=== PATIENT | male | born 1950 | race Caucasian/White ===

== ENCOUNTER 2024-12-21 13:15 | Outpatient (REF) | payer MEDICARE, BC, SELFPAY ==
[2024-12-21 14:58] LABS: Anion Gap 14 (12-20); Blood Urea Nitrogen 13 mg/dL (9-16); Carbon Dioxide 25 mmol/L (22-29); Chloride 106 mmol/L (96-108); Estimated Glomerular Filt Rate > 60; Glucose Fasting 124 mg/dL (60-99); Potassium 3.7 mmol/L (3.3-5.1); Sodium 141 mmol/L (135-145)
[2024-12-21 15:34] LABS: Vitamin B12 801 pg/mL (200-900)
--- OUTSIDE RECORDS SUMMARY | 2024-12-21 17:18 | XMS_ITS | Encounter Summary ---
Author Organization [facility] Address [address] [place] [address] Care Team Providers Care Nitrocellulose Operator Name Role Phone Rashaun Toney MD Primary Care Provider [phone] Reason for Visit * Reason Comments Peripheral Neuropathy Eval for muscle bx * Consultation (Routine) - Closed Specialty Diagnoses / Procedures Referred By Contac t Referred To Contact Neurosurgery [place] [address] [place] [phone] Ivy Wharton MD [address] [place] [phone] Referral ID Status Reason Start Date Expiration Date V isits Requested Visits Authorized [id number] Closed Specialty Services Required 11/13/2024 11/13/2025 1 1 Encounter Details Date Type Department Care Team (Late st Contact Info) Description 12/05/2024 11:30 AM EST Office Visit Neurosurgery [address] [phone] Ivy Wharton MD [address] [place] [phone] Neuropathy of both feet (Primary Dx); Neuropathy Social History Tobacco Use Types Packs/Day Years Used Date Smoking Tobacco: Former Cigarettes 0.5 42 1 - 09/06/2012 Smokeless Tobacco: Never Tobacco Cessation:Counseling Given: Not Answered Alcohol Use Standard Drinks/Week Comments Yes 12 (1 standard drink = 0.6 oz pu re alcohol) Sex and Gender Information Value Date Recorded Sex Assigned at Male 10/27/2024 2:55 PM EST Gender Identity Male 10/27/2024 2:55 PM EST Sexual Orientation Straight 10/27/2024 2: 55 PM EST Job Start Date Occupation Industry Not on file Not on file Not on file documented as of this encounter Last Filed Vital Signs Vital Sign Reading Time Taken Comments Blood Pressure - - Pulse - - Temperature - - Respiratory Rate - - Oxygen Saturation - - Inhaled Oxygen Concentration - - Weight 82.6 kg (182 lb) 12/05/2024 11:11 AM EST Height 172.7 cm (5' 8 ) 12/05/2024 11:11 AM EST Body Mass Index 27.67 12/05/2024 11:11 AM EST documented in this encounter Progress Notes * Ivy Wharton MD - 12/05/2024 12:20 PM ESTAssociated Problem(s): Neuropathy of both feet I reviewed the EMG findings in detail with Mr. Willis which showed peripheral neuropathy and mild distal chronic changes. He does not have any worsening back pain and his symptoms do not seem to radiate from his back. It is worse at night and getting worse every month and affecting him every day. The request was for a right calf muscle biopsy but he has not yet had his appointment with neurology. He is scheduled to see Dr. Stuart at the end of November. I would like to wait until after that appointment to confirm that the biopsies needed and if there is a specific muscle group they would liketo target. The patient is concerned that this whole process has taken quite some time so we will reserve a surgical date for him in mid December pending his neurology appointment. We discussed the det ails of the procedure but can review them again at our next conversation. * Ivy Wharton MD - 12/05/2024 11:30 AM EST NEW PATIENT CONSULTATION Date of Visit: 12/05/2024 Referring Physician: Keaton Silva MD Primary Care Physician: Rashaun Toney MD RE: Rajeev Willis : 1950 Chief Complaint Patient presents with Peripheral Neuropathy Eval for muscle bx Dear Dr Rashaun Toney MD Thank you for referring Mr. Willis to our office today. Rajeev Willis is a 74 y.o. male who presents to our office with a 1 year history of what began as twitching in his legs then progressed to spasms. There was no inciting event and was not painful per se at the symptom onset. Unfortunately, this has progressed to severe cramping in his calves every night for the last few months whether he issitting back in his recliner or fully laying down. It happens less often during the day but these episodes can last 5 to 20 minutes and are becoming unbearable, rating the pain level 10/10. 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 This seems unrelatedto that. He was evaluated at the arthritis treatment center where standard laboratory tests were within normal but an EMG showed abnormal findings. The request is for a right calf biopsy for myalgia versus myositis and he was also referred to Dr. Stuart of neurology. Past Medical History: Diagnosis Date Abdominal pain DX:Abdominal pain Abnormal large bowel motility DX:Abnormal large bowel motility Constipation DX:Constipation COPD (chronic obstructive pulmonary disease) ([facility]) DX:COPD (chronic obstructive pulmonary disease) ([facility]) Hyperlipidemia Hypertension Tubular adenoma of colon DX:Tubular adenoma of colon Past Surgical History: Procedure Laterality Date ANKLE SURGERY Right COLONOSCOPY 03/29/2012 PROCEDURE: HISTORICAL COLONOSCOPY; COMMENT: 12 mm sessile polyp at 40 cm: tubular adenoma. COLONOSCOPY 08/09/2000 PROCEDURE: HISTORICAL COLONOSCOPY; COMMENT: 5 mm tubular adenoma at 25 cm COLONOSCOPY 03/18/2006 PROCEDURE: HISTORICAL COLONOSCOPY; COMMENT: no polyps COLONOSCOPY 05/27/2017 PROCEDURE: HISTORICAL COLONOSCOPY; COMMENT: 5 mm rectal polyp: hyperplastic. FOOT SURGERY Left SHOULDER SURGERY Right No Known Allergies Current Outpatient Medications Medication Sig Dispense Refill atorvastatin (LIPITOR) 20 mg tablet TAKE 1 TABLET BY MOUTH EVERY DAY 90 tablet 0 Combivent Respimat 20-100 mcg/actuation inhaler INHALE 1 PUFF INTO THE LUNGS FOUR TIMES DAILY NEEDED FOR WHEEZING lisinopriL (PRINIVIL,ZESTRIL) 30 mg tablet Take 1 tablet (30 mg total) by mouth 1 (one) time each day. tamsulosin (FLOMAX) 0.4 mg 24 hr capsule Take 1 capsule (0.4 mg total) by mouth. Trelegy Ellipta 200-62.5-25 mcg inhaler Inhale. umeclidinium-vilanteroL (ANORO ELLIPTA) 62.5-25 mcg/actuation inhaler Inhale by mouth. cyclobenzaprine (FLEXERIL) 5 mg tablet Take 1 tablet (5 mg total) by mouth. (Patient not taking: Reported on 12/05/2024) mometasone (ELOCON) 0.1 % cream APPLY TO AFFECTED AREA DAILY DIRECTED. 45 g 1 No current facility-administered medications for this visit. Social History Tobacco Use Smoking status: Former Current packs/day: 0.00 Average packs/day: 0.5 packs/day for 42.0 years (21.0 ttl pk-yrs) Types: Cigarettes Start date: 1970 Quit date: 09/06/2012 Years since quittin.2 Smokeless tobacco: Never Substance Use Topics Alcohol use: Yes Alcohol/week: 12.0 standard drinks of alcohol Types: 12 Cans of beer per week Drug use: No Social History Social History Narrative Not on file No family history on file. Review of Systems Notable for weight change, mild fatigue, depression, tinnitus and shortness of breath due to emphysema Physical Exam Awake, alert and oriented with normal speech and good comprehension. Strength is full throughout, he is able to stand on his toes and walk on his heels, gait is steady. Vitals: 12/05/24 1111 Weight: 82.6 kg (182 lb) Height: 1.727 m (68 ) Imaging Bilateral lower extremity EMG/NCS performed by Dr. Sewell on 10/30/2024 showed diffuse to mild tohave sensorimotor peripheral neuropathy of lower extremities. EMG of the left L4-S1 innervated muscles consistent with mild distal chronic neuropathic changes Assessment/Plan Problem List Items Addressed This Visit Neuropathy of both feet - Primary I reviewed the EMG findings in detail with Mr. Willis which showed peripheral neuropathy and mild distal chronic changes. He does not have any worsening back pain and his symptoms do not seem to radiate from his back. It is worse at night and getting worse every month and affecting him every day. The request was for a right calf muscle biopsy but he has not yet had his appointment with neurology. He is scheduled to see Dr. Stuart at the end of November. I would like to wait until after that appointment to confirm that the biopsies needed and if there is a specific muscle group they would liketo target. The patient is concerned that this whole process has taken quite some time so we will reserve a surgical date for him in mid December pending his neurology appointment. We discussed the det ails of the procedure but can review them again at our next conversation. Other Visit Diagnoses Neuropathy Thank you for allowing us to care for your patient. Ivy Wharton MD on 12/05/2024 at 12:21 PM EST CC: Keaton Silva MD Zhongmo Yu, MD [facility] Neurosurgical [place] documented in this encounter Plan of Treatment Upcoming Encounters Date Type Department Care Team (Late st Contact Info) Description 02/13/2025 8:15 AM EDT Office Visit Adult Medicine [facility] [address] [place] [phone] Ishmael Reaves PA [address] [place] [address] 04/02/2025 9:30 AM EDT [facility] [address] [facility] [address] [place] [phone] Ayaan Benjamin MD 175 [facility] [address] [place] [address] documented as of this encounter Visit Diagnoses Diagnosis Neuropathy of both feet- Primary Neuropathy Mononeuritis of unspecified site documented in this encounter Historical Medications * This list may reflect changes made after this encounter. Medication Sig Dispensed Refills Start Date End Date umeclidinium-vilanteroL (ANORO ELLIPTA) 62.5-25 mcg/actuation inhaler Inhale by mouth. added in this encounter Orders Outpatient Referral Count Last Ordered Date Fir st Ordered Date AMB REFERRAL TO NEUROSURGERY 1 12/05/2024 documented in this encounter Care Teams Nitrocellulose Operator Relationship Specialty Start Date End Date Rashaun Toney MD [address] [place] [phone] PCP - General 09/13/1998 documented as of this encounter
--- OUTSIDE RECORDS SUMMARY | 2024-12-21 17:18 | XMS_ITS | Encounter Summary ---
Author Organization [facility] Address [address] [place] [address] Care Team Providers Care Nurse Infection Control Name Role Phone Garett Toney MD Primary Care Provider [phone] Reason for Visit * Reason Comments Follow-up Three month follow u p- Patient feeling stressed out over leg pain in both legs. Leg pain at night Encounter Details Date Type Department Care Team (Late st Contact Info) Description 12/06/2024 3:30 PM EST Office Visit Adult Medicine [address] [phone] Garett Toney MD [address] [place] [phone] Pain in both lower extremities (Primary Dx); Type 2 diabetes mellitus with other specified complication, without long-term current use of insulin ([facility]); Pure hypercholesterolemia ; Neuropathy of both feet; Arthralgia, unspecified joint; Stress Social History Tobacco Use Types Packs/Day Years [...] Sign Reading Time Taken Comments Blood Pressure 140/82 12/06/2024 3:40 PM EST Pulse 94 12/06/2024 3:40 PM EST Temperature 36 ??C (96.8 ??F) 12/06/2024 3:40 PM EST Respiratory Rate 22 12/06/2024 3:40 PM EST Oxygen Saturation - - Inhaled Oxygen Concentration - - Weight 82.1 kg (181 lb) 12/06/2024 3:40 PM EST Height 172.7 cm (5' 8 ) 12/06/2024 3:40 PM EST Body Mass Index 27.52 12/06/2024 3:40 PM EST documented in this encounter Ordered Prescriptions Prescription Sig Dispensed Refills Start Date End Da te sertraline (ZOLOFT) 25 mg tablet Take 1 tablet (25 mg total) by mouth 1 (one) time each day. 30 tablet 3 12/06/2024 documented in this encounter Progress Notes * Garett Toney MD - 12/06/2024 3:30 PM ESTAddended by: GARETT TONEY on: 12/10/2024 05:28 PM Modules accepted: Level of Service * Garett Toney MD - 12/06/2024 3:30 PM EST see separate documentation * Garett Toney MD - 12/06/2024 3:30 PM EST CHIEF COMPLAINT: Follow-up (Three month follow up- Patient feeling stressed out over leg pain in both legs. Leg pain at night ) IDENTIFIER: Rajeev Willis is a 74 y.o. old male. HPI: Pt presents for evaluation of multiple medical problems. Patient complain about significant bilateral lower extremity pain. The appears to have 2 different components, pain in the calf region with frequent muscle spasm, also pain numbness tingling sensation from the ankles down. All symptoms appears to be worse in the evening hours affecting patient's sleeping. Patient saw multiple specialist for these ongoing complaints, including rheumatology, neurosurgeon,neurology. Patient described what appears to be EMG study and told me that neurosurgeon will make final decision from neurology for the next step. There is no specific joint swelling or redness. Patient's breathing is at baseline, no increased cough, no constitutional symptoms. She is taking his medication as instructed Patient continued his drinking habit although he is cutting way down, average only few beers per day. ROS: GENERAL: Negative for malaise, significant weight loss and fever RESPIRATORY: No cough, wheezing or shortness of breath CARDIOVASCULAR: Negative for chest pain, leg swelling and palpitations GI: Negative for abdominal discomfort, changes in bowel habits, blood in stool or black stools ENDOCRINE: Negative for cold or heat intolerance, polyuria, polydipsia and goiter NEURO: Negative for syncope, seizures, paralysis, and involuntary movements PAST MEDICAL HISTORY: Patient Active Problem List Diagnosis Date Noted DM (diabetes mellitus), type 2 ([facility] 08/24/2024 Type 2 diabetes mellitus without complication, without long-term current use of insulin ([facility]) 05/11/2019 Hypoxia 11/30/2018 Requires supplemental oxygen 11/30/2018 Stage 2 moderate COPD by GOLD classification ([facility]) 05/26/2018 Centrilobular emphysema ([facility]) 05/26/2018 Thoracic ascending aortic aneurysm ([facility]) 10/21/2017 Pulmonary nodules 10/20/2017 Neuropathy of both feet 11/03/2016 Essential hypertension 08/04/2016 Osteoarthritis of lumbar spine 08/04/2016 Family history of malignant melanoma 08/04/2016 Ex-smoker 07/14/2016 Pure hypercholesterolemia 10/13/2005 SOCIAL HISTORY: Social History Tobacco Use Smoking status: Former Current packs/day: 0.00 Average packs/day: 0.5 packs/day for 42.0 years (21.0 ttl pk-yrs) Types: Cigarettes Start date: 1970 Quit date: 09/06/2012 Years since quittin.2 Smokeless tobacco: Never Substance Use Topics Alcohol use: Yes Alcohol/week: 12.0 standard drinks of alcohol Types: 12 Cans of beer per week FAMILY HISTORY: Family Status Relation Name Status Mother melanoma 73 Father thyroid cancer Sister Alive Sister Alive No partnership data on file No family history on file. ACTIVE MEDICATIONS: Outpatient Medications Marked as Taking for the 12/06/24 encounter (Office Visit) with Garett Toney MD Medication Sig Dispense Refill atorvastatin (LIPITOR) 20 mg tablet TAKE 1 TABLET BY MOUTH EVERY DAY 90 tablet 0 Combivent Respimat 20-100 mcg/actuation inhaler INHALE 1 PUFF INTO THE LUNGS FOUR TIMES DAILY NEEDED FOR WHEEZING lisinopriL (PRINIVIL,ZESTRIL) 30 mg tablet Take 1 tablet (30 mg total) by mouth 1 (one) time each day. mometasone (ELOCON) 0.1 % cream APPLY TO AFFECTED AREA DAILY DIRECTED. 45 g 1 tamsulosin (FLOMAX) 0.4 mg 24 hr capsule Take 1 capsule (0.4 mg total) by mouth. Trelegy Ellipta 200-62.5-25 mcg inhaler Inhale. umeclidinium-vilanteroL (ANORO ELLIPTA) 62.5-25 mcg/actuation inhaler Inhale by mouth. ALLERGIES: Patient has no known allergies. PHYSICAL EXAM: Blood pressure (!) 140/82, pulse 94, temperature 36 ??C (96.8 ??F), temperature source Temporal, resp. rate 22, height 1.727 m (68 ), weight 82.1 kg (181 lb). Body mass index is 27.52 kg/m??. BMI is greater than 25.0 (above the normal range) - see Plan APPEARANCE: Alert and in no acute distress MOUTH/THROAT: no erythema, lesions, or exudates HEART: Regular normal S1-S2 LUNG: clear to auscultation bilaterally ABDOMEN: Bowel sounds normoactive, no bruits and soft, non-tender, without organomegaly or palpablemasses BACK: no pain to palpation and good flexion and extension EXTREMITIES: No edema and overall warm LABS: Lab Results Component Value Date HGBA1C 6.4 06/20/2024 Lab Results Component Value Date MICROALBCREA abstracted 06/20/2024 No results found for: GLUCOSE , CALCIUM , NA , K , CO2 , CL , BUN , CREATININE Wt Readings from Last 5 Encounters: 12/06/24 82.1 kg (181 lb) 12/05/24 82.6 kg (182 lb) 10/03/24 82.6 kg (182 lb) 08/21/24 81.2 kg (179 lb) 06/20/24 78.5 kg (173 lb) BP Readings from Last 5 Encounters: 12/06/24 (!) 140/82 10/03/24 (!) 144/76 08/21/24 136/72 06/20/24 (!) 149/75 03/30/24 124/64 IMPRESSION: 1. Pain in both lower extremities 2. Type 2 diabetes mellitus with other specified complication, without long-term current use of insulin ([facility]) 3. Pure hypercholesterolemia 4. Neuropathy of both feet 5. Arthralgia, unspecified joint 6. Stress PLAN: Pt presents for evaluation of multiple medical problems. Patient complain about significant bilateral lower extremity pain. The appears to have 2 different components, pain in the calf region with frequent muscle spasm, also pain numbness tingling sensation from the ankles down. All symptoms appears to be worse in the evening hours affecting patient's sleeping. Patient saw multiple specialist for these ongoing complaints, including rheumatology, neurosurgeon,neurology. Patient described what appears to be EMG study and told me that neurosurgeon will make final decision from neurology for the next step. There is no specific joint swelling or redness. Patient's breathing is at baseline, no increased cough, no constitutional symptoms. She is taking his medication as instructed Patient continued his drinking habit although he is cutting way down, average only few beers per day. 1 lower extremity pain discomfort, complex history appears to multiple components. I reviewed notesthat is available to me and I had extensive discussion with this patient. EMG clearly would provide a diagnostic clue regarding small versus large fiber neuropathy for whichpatient has history I understand patient's frustration that much emphasize has been placed on patient's drinking leading to neuropathy although patient is cutting down his alcohol use which I strongly encouraged. We discussed management issues, discussed the sequence of neurological confirmation versus neurosurgery intervention and treatment of his known DJD Discussed home physical therapy Warning symptoms discussed that would need immediate reevaluation, including ER visit. Patient actually is not interested in me initiating any agent at this time 2 discussed the patient's recent CT scan October, some minor development that radiologist recommend to continue to follow-up for repeat CT scan in 6 months. Patient is appointment already scheduled with pulmonology. 3 discussed the patient diabetes, encouraged patient's report of his effort to monitor his diet andcontrol his weight. Discussed diabetic routine care. I will monitor hemoglobin A1c for future decision. 4 I understand patient's stress, I had extensive discussion with this patient it is after prolongeddiscussion, answering patient's many intelligent questions, side effects etc.,. We decided to starta low-dose Zoloft at 25 mg a day. I stressed the importance of routine follow-up. Orders Placed This Encounter Procedures Hemoglobin A1c Microalbumin and creatinine with ratio, urine timed ADDITIONAL ORDERS: None Garett Toney MD on 12/07/2024 at 8:47 AM EST documented in this encounter Plan of Treatment Upcoming Encounters Date Type Department Care Team (Late st Contact Info) Description 02/13/2025 8:15 AM EDT Office Visit Adult Medicine [facility] [address] [place] [address] Ishmael Reaves PA [address] [place], [place] 04/02/2025 9:30 AM EDT [facility] [address] [facility] [address] [place] [address] Ayaan Benjamin MD 175 [facility] [address] [place] [address] Scheduled Orders Name Type Priority Associated Diagnoses Orde r Schedule Hemoglobin A1c Lab Routine Type 2 diabetes mellitus with other specified complication, without long-term current use of insulin ([facility]) 1 Occurrences starting 12/06/2024 until 12/06/2025 Microalbumin and creatinine with ratio, urine timed Lab Routine Type 2 diabetes mellitus with other specified complication, without long-term current use of insulin ([facility]) 1 Occurrences starting 12/06/2024 until 12/06/2025 documented as of this encounter Visit Diagnoses Diagnosis Pain in both lower extremities- Primary Type 2 diabetes mellitus with other specified complication, without long-term current use of insulin ([facility]) Pure hypercholesterolemia Neuropathy of both feet Arthralgia, unspecified joint Stress Other psychological or physical stress, not elsewhere classified documented in this encounter Care Teams Nurse Infection Control Relationship Specialty Start Date End Date Garett Toney MD [address] [place], [place] PCP - General 09/13/1998 documented as of this encounter
--- OUTSIDE RECORDS SUMMARY | 2024-12-21 17:18 | XMS_ITS | Clinical Summary ---
Author Organization [facility] Address [address] [place] [address] Phone Care Team Providers Care Leveler Helper Name Role Phone Rashaun Toney MD Primary Care Provider [phone] Allergies No known active allergies Medications Medication Sig Dispensed Refills Start Date End Date Status Trelegy Ellipta 200-62.5-25 mcg inhaler Inhale. Active lisinopriL (PRINIVIL,ZESTRIL ) 30 mg tablet Take 1 tablet (30 mg total) by mouth 1 (one) time each day. 11/05/2023 Active cyclobenzaprine (FLEXERIL) 5 mg tablet Take 1 tablet (5 mg total) by mouth. 2023 Active Combivent Respimat 20-100 mcg/actuation inhaler INHALE 1 PUFF INTO THE LUNGS FOUR TIMES DAILY NEEDED FOR WHEEZING 06/01/2023 Active tamsulosin (FLOMAX) 0.4 mg 24 hr capsule Take 1 capsule (0.4 mg total) by mouth. Active mometasone (ELOCON) 0.1 % cream APPLY TO AFFECTED AREA DAILY DIRECTED. 45 g 1 11/02/2024 Active atorvastatin (LIPITOR) 20 mg tablet TAKE 1 TABLET BY MOUTH EVERY DAY 90 tablet 11/24/2024 Active umeclidinium-sanjeev nteroL (ANORO ELLIPTA) 62.5-25 mcg/actuation inhaler Inhale by mouth. Active sertraline (ZOLOFT) 25 mg tablet Take 1 tablet (25 mg total) by mouth 1 (one) time each day. 30 tablet 3 12/06/2024 Active atorvastatin (LIPITOR) 20 mg tablet Take 1 tablet (20 mg total) by mouth 1 (one) time each day. 11/25/2023 11/24/2024 Discontinued Active Problems Problem Noted Date Diagnosed Date DM (diabetes mellitus), type 2 08/24/2024 Type 2 diabetes mellitus wit hout complication, without long-term current use of insulin 05/11/2019 Hypoxia 11/30/2018 Requires supplemental oxygen 11/30/2018 Stage 2 moderate COPD by GOLD classification 03/2018 Centrilobular emphysema 05/26/2018 Thoracic ascending aortic aneurysm 10/21/2017 Pulmonary nodules 10/20/2017 Neuropathy of both feet 11/03/2016 Assessment & Plan (12/05/2024 12:20 PM EST): I reviewed the EMG findings in detail [...] is a specific muscle group they would like to target. The patient is concerned that this whole process has taken quite some time so we will reserve a surgical date for him in mid December pending his neurology appointment. We discussed the details of the procedure but can review them again at our next conversation. Essential hypertension 08/04/2016 Osteoarthritis of lumbar spine 08/04/2016 Family history of malignant melanoma 08/04/2016 Ex-smoker 07/14/2016 Pure hypercholesterolemia 10/13/2005 Encounters Date Type Department Care Team Description 12/06/2024 3:30 PM EST Office Visit Adult Medicine [address] [address] Rashaun Toney MD Pain in both lower extremities (Primary Dx); Type 2 diabetes mellitus with other specified complication, without long-term current use of insulin (CMS/[facility]); Pure hypercholesterolemia; Neuropathy of both feet; Arthralgia, unspecified joint; Stress 12/05/2024 11:30 AM EST Office Visit Neurosurgery [place] [address] [place] [phone] Ivy Wharton MD Neuropathy of both feet (Primary Dx); Neuropathy 11/16/2024 11:30 AM EST - 11/16/2024 11:59 PM EST Hospital Encounter [facility] CT Scan [address] [place] [phone] Pulmonary nodule less than 6 mm determined by computed tomography of lung Discharge Disposition: Home or Self Care 11/08/2024 Telephone Lung Screening Program - [facility] [address] [place] [phone] Lorenza Arvizu MA Appointment (Upcoming LDCT) 10/30/2024 2:14 PM EST - 10/30/2024 11:59 PM EST Hospital Encounter [facility] Neurodiagnostic [address] [place] [phone] Cramp and spasm Discharge Disposition: Home or Self Care 10/16/2024 Telephone Pulmonolgy - [facility] [address] [place] [phone] Sharri Cruz MA DME request (Oxygen therapy SWO signed and faxed back to [facility]. Fax confirmation received. ) [facility] [address] [place] [phone] Ayaan Benjamin MD durable medical equipment 10/03/2024 8:45 AM EST Office Visit Pulmonolgy [facility] [address] [facility] [address] [place] [phone] Ayaan Benjamin MD Centrilobular emphysema (CMS/HCC) (Primary Dx); Pulmonary nodule from Last 3 Months Immunizations Name Administration Dates Next Due Influenza trivalent, 0.5mL ( Fluzone High-dose) 65yo and older 2023,09/09/2022,10/03/2021,08/15,08/15/2019,08/29/2018,08/31/2017 ,08/04/2016 Influenza trivalent, with pr eservative (Fluzone; Afluria) 6mo and older 08/22/2013,08/25/2012,07/28/2011 Influenza, Unspecified 08/21/2024 Moderna SARS-CoV-2 COVID-19, mRNA, LNP-S, preservative free 03/14/2021,02/14/2021 Pneumococcal conjugate 13 va lent (Prevnar 13, PCV13) 2mo and older 11/03/2016 Pneumococcal polysaccharide 23 valent (Pneumovax 23) 2yo and older 08/31/2017 Td Tetanus diptheria (Tdvax) 7yo and older 05/04/2002 Tdap Tetanus diptheria acell ular pertussis (Boostrix; Adacel) 7yo and older 09/09/2022,06/03/2012 Zoster Live 06/03/2012 Surgical History Surgery Date Site/Laterality Comments COLONOSCOPY 03/29/2012 PROCEDURE: HISTORICAL COLONOSCOPY; COMMENT: 12 mm sessile polyp at 40 cm: tubular adenoma. COLONOSCOPY 08/09/2000 PROCEDURE: HISTORICAL COLONOSCOPY; COMMENT: 5 mm tubular adenoma at 25 cm COLONOSCOPY 03/18/2006 PROCEDURE: HISTORICAL COLONOSCOPY; COMMENT: no polyps COLONOSCOPY 05/27/2017 PROCEDURE: HISTORICAL COLONOSCOPY; COMMENT: 5 mm rectal polyp: hyperplastic. ANKLE SURGERY Right FOOT SURGERY Left SHOULDER SURGERY Right Medical History Medical History Date Comments Abdominal pain DX:Abdominal jae n Constipation DX:Constipation Abnormal large bowel motility DX :Abnormal large bowel motility COPD (chronic obstructive pu lmonary disease) (CMS/HCC) DX:COPD (chronic obstructive pulmonary disease) (HCC) Tubular adenoma of colon DX:Tubu lar adenoma of colon Hypertension Hyperlipidemia Family History Relation Name Status Comments Father thyroid cancer Mother melanoma 73 Sister 1 Alive Sister 2 Alive Social History Tobacco Use Types Packs/Day Years [...] file Not on file Not on file Obstetrics History Last Filed Vital Signs Vital Sign Reading Time Taken Comments Blood Pressure 140/82 12/06/2024 3:40 PM EST Pulse 94 12/06/2024 3:40 PM EST Temperature 36 ??C (96.8 ??F) 12/06/2024 3:40 PM EST Respiratory Rate 22 12/06/2024 3:40 PM EST Oxygen Saturation 96% 10/03/2024 9:03 AM EST Inhaled Oxygen Concentration - - Weight 82.1 kg (181 lb) 12/06/2024 3:40 PM EST Height 172.7 cm (5' 8 ) 12/06/2024 3:40 PM EST Body Mass Index 27.52 12/06/2024 3:40 PM EST Plan of Treatment Upcoming Encounters Date Type Department Care Team (Late st Contact Info) Description 02/13/2025 8:15 AM EDT Office Visit [facility] [address] [place] [address] Ishmael Reaves PA [address] [place] [address] 04/02/2025 9:30 AM EDT Office Visit Pulmonol - [facility] [address] [place] [phone] Ayaan Benjamin MD [address] [facility] [address] [place] [address] Health Maintenance Due Date Last Done Comments Diabetes: Annual Retina Eye Exam 1960 RSV Immunization Patients 60+ Years Old (1 - Risk 60-74 years 1-dose series) 2010 Zoster Vaccines (2 of 3) 07/29/2012 06/03/2012 Abdominal Aortic Aneurysm (AAA) Screen 10/31/2022 Medicare Annual Wellness Visit 10/31/2022 Social Influencers of Health Screening 10/31/2022 COVID-19 Vaccine ( season) 2024 10/28/2021, 03/14/2021, 02/14/2021 Diabetes: Annual Foot Exam 2024 2023 Depression Screening 11/08/2024 11/08/2023 Falls Risk Assessment 11/08/2024 11/08/2023 Diabetes: Blood Sugar Control Test (HGBA1C) 12/21/2024 06/20/2024, 06/20/2024 Diabetes: Annual GFR (Glomerular Filtration Rate) 01/31/2025 02/01/2024 Hypertension/CHF/CAD Annual BMP Blood Test 01/31/2025 02/01/2024 Lung Cancer Screening (Low Dose CT) 05/22/2025 05/22/2024, 05/19/2024, 05/22/2023, Additional history exists Diabetes: Annual Urine Albumin-Creatinine Ratio (uACR) 06/20/2025 06/20/2024 Colorectal Cancer Screening: Colonoscopy 01/07/2026 01/07/2023 Cholesterol Screening (Lipid Panel) 01/26/2029 01/27/2024 DTaP,Tdap,and Td Vaccines (4 - Td or Tdap) 09/09/2032 09/09/2022, 06/03/2012, 05/04/2002 Pneumococcal Vaccine: 65+ Years Completed 08/31/2017, 11/03/2016 Hepatitis C Screening Completed 02/11/2018 Influenza Vaccine Completed 08/21/2024, , 09/09/2022, Additional history exists HIB Vaccines Aged Out No longer eligi ble based on patient's age to complete this topic HPV Vaccines Aged Out No longer eligi ble based on patient's age to complete this topic Hepatitis A Vaccines Aged Out No long er eligible based on patient's age to complete this topic Hepatitis B Vaccines Aged Out No long er eligible based on patient's age to complete this topic IPV Vaccines Aged Out No longer eligi ble based on patient's age to complete this topic MMR Vaccines Aged Out No longer eligi ble based on patient's age to complete this topic Meningococcal ACWY Vaccine Aged Out N o longer eligible based on patient's age to complete this topic RSV Immunization Patients Under 20 months Aged Out No longer eligible based on patient's age to complete this topic Varicella Vaccines Aged Out No longer eligible based on patient's age to complete this topic Procedures Procedure Name Priority Date/Time Associated Diagnosis Comments CT CHEST WO CONTRAST Routine 11/16/2024 11:48 AM EST Pulmonary nodule less than 6 mm determined by computed tomography of lung EMG 2 LIMBS Routine 10/30/2024 3:05 PM EST Cramp and spasm URINE ALBUMIN CREATININE RATIO Routine 06/20/2024 HEMOGLOBIN A1C Routine 06/20/2024 CT LUNG SCREENING LOW DOSE Routine 05/22/2024 2:26 PM EDT Encounter for screening for malignant neoplasm of respiratory organs ANNUAL BMP BLOOD TEST Routine 02/01/2024 LIPID PANEL Routine 01/27/2024 DEPRESSION SCREENING Routine 11/08/2023 FALLS RISK ASSESSMENT Routine 11/08/2023 DIABETES FOOT EXAM Routine 2023 COLONOSCOPY Routine 01/07/2023 HEPATITIS C SCREENING Routine 02/11/2018 from Last 3 Months or Most Recently Relevant to Health Maintenance Results * CT Chest wo Contrast (11/16/2024 11:48 AM EST) Anatomical Region Laterality Modality Body Computed Tomogra phy 11/20/2024 9:53 AM EST Impressions 11/20/2024 10:53 AM EST Interval resolution of the previously described new nodules from 05/22/2024 compatible with an infectious/inflammatory nodules. ??Multiple new nodules on today's exam measuring up to 5 mm are also likely infectious/inflammatory. ??Chest CT recommended in 6 months to further assess. Lung RADS 3-probably benign. -------- FINAL REPORT -------- Dictated By: DEL GUTHRIE Dictated Date: 11/20/2024 09:53 ET Assigned Physician: DEL GUTHRIE Reviewed and Electronically Signed By: DEL GUTHRIE Signed Date: 11/20/2024 10:53 ET Workstation ID: [id number] Transcribed By: Self Edit Transcribed Date: 11/20/2024 10:11 ET Narrative 11/20/2024 10:53 AM EST PROCEDURE: Chest CT INDICATION: Lung nodule TECHNIQUE: Chest CT without contrast. Multi planar reformats were created and interpreted. The examination was performed utilizing dose reduction techniques. ??Total DLP 185 COMPARISON: ??05/22/2024 CT FINDINGS: LUNGS/PLEURA: Central airways are patent. ??Severe emphysema. ??Right upper lobe and right lower lobe nodules seen previously have resolved. ??There is a new nodule in the right lower lobe measuring 4 mm. ??Multiple additional new nodules are seen in the left upper lobe measuring up to 5 mm. ??No pleural effusion or pneumothorax. MEDIASTINUM: Thyroid gland is unremarkable. No mediastinal or hilar lymphadenopathy. Cardiac chambers are normal in size. No pericardial effusion. ??Moderate coronary artery calcifications. ??Aortic valvular calcifications. ??Esophagus is normal. CHEST WALL: No axillary lymphadenopathy or superficial hematoma. UPPER ABDOMEN:Hepatic steatosis. ??Right renal cyst. BONES: No acute fracture. Scattered degenerative changes seen throughout the bones. Procedure Note Del Guthrie MD - 11/20/2024 PROCEDURE: Chest CT INDICATION: Lung nodule TECHNIQUE: Chest CT without contrast. Multi planar reformats were createdand interpreted. The examination was performed utilizing dose reductiontechniques. Total DLP 185 COMPARISON: 05/22/2024 CT FINDINGS: LUNGS/PLEURA: Central airways are patent. Severe emphysema. Right upperlobe and right lower lobe nodules seen previously have resolved. There oliver new nodule in the right lower lobe measuring 4 mm. Multiple additionalnew nodules are seen in the left upper lobe measuring up to 5 mm. Nopleural effusion or pneumothorax. MEDIASTINUM: Thyroid gland is unremarkable. No mediastinal or hilarlymphadenopathy. Cardiac chambers are normal in size. No pericardialeffusion. Moderate coronary artery calcifications. Aortic valvularcalcifications. Esophagus is normal. CHEST WALL: No axillary lymphadenopathy or superficial hematoma. UPPER ABDOMEN:Hepatic steatosis. Right renal cyst. BONES: No acute fracture. Scattered degenerative changes seen throughoutthe bones. IMPRESSION: Interval resolution of the previously described new nodules from05/22/2024 compatible with an infectious/inflammatory nodules. Multiplenew nodules on today's exam measuring up to 5 mm are also likelyinfectious/inflammatory. Chest CT recommended in 6 months to furtherassess. Lung RADS 3-probably benign. -------- FINAL REPORT -------- Dictated By: DEL GUTHRIE Dictated Date: 11/20/2024 09:53 ET Assigned Physician: DEL GUTHRIE Reviewed and Electronically Signed By: DEL GUTHRIE Signed Date: 11/20/2024 10:53 ET Workstation ID: [id number] Transcribed By: Self Edit Transcribed Date: 11/20/2024 10:11 ET Mary Humphrey MD IMG CT PROCEDURES * EMG two limbs (10/30/2024 3:05 PM EST) Narrative Saritha Sewell MD - 10/30/2024 3:45 PM EST See report in chart review eKaton Silva MD NEUROLOGY ORDERABLES * HM Urine Albumin Creatinine Ratio (06/20/2024) Urine Albumin Creatinine Ratio abstracted Historical Provider [facility] * Hemoglobin A1c (06/20/2024) Hemoglobin A1C 6.4 6.5 % Blood Venous blood specimen / Unknown Historical Provider LAB BLOOD ORDERAB LES * CT LUNG SCREENING LOW DOSE (05/22/2024 2:26 PM EDT) Anatomical Region Laterality Modality Computed Tomogra phy 05/19/2024 10:2 4 AM EDT Narrative 05/22/2024 2:26 PM EDT [facility] Diagnostic Imaging Department [address] [place] [id number] Patient: ??ERIKA WILLIS ?/Age/Sex: 1950 - 73 - M Unit#: ??[id number] ? Location/Status: ??SPDICATLS/REG CLI ? Mnemonic/Ordering Site: ??CTLUNGLD/SPCT Ordering Physician: ??MARY HUMPHREY MD CT Lung Screening Low Dose - 05/19/24 - 1041 Report Status:Signed History: ??73 year-old 65 pack-year former smoker, asymptomatic, for lung cancer screening. Quit smoking 12 years ago. Known coronary artery disease. Multiple exposures. 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 Comparison: 05/19/23 Technique: Helical volumetric imaging of the thorax was performed, using low- dose technique, without IV contrast. DLP: 168.88 mGy/cm ??CTDIvol: 4.83 mGy [employer] Iterative reconstruction technique Findings: Lungs and Airways: The trachea and central bronchial tree remain patent. Extensive centrilobular emphysema is again noted. Stable minimal juxtapleural reticular opacity is seen in the right upper lobe and there is minimal juxtamediastinal atelectasis in the right middle lobe, unchanged. Solid, noncalcified pulmonary nodules include a new 5 mm right upper lobe nodule (image 69 series 3) and a new 4 mm right lower lobe nodule (image 142). A few stable sub-4 mm nodules are scattered bilaterally. Pleura: No pleural or pericardial effusions are seen. Base of neck, mediastinum and heart: The heart remains normal in size. Severe, three-vessel coronary artery calcification is again noted. No developing thoracic lymphadenopathy is seen. Soft tissues: The overlying soft tissues are unremarkable. Abdomen: This study was performed without contrast and with lower than standard dose. These factors reduce the sensitivity for detection of small lesions in the upper abdomen. No significant abnormality is seen. Impression: New right upper and lower lobe nodules measuring up to 5 mm, for which a follow-up low-dose CT is recommended in 6 months. Lung RADS 3: Probably benign findings - short-term followup suggested. [id number] [id number] [id number] Dictating Physician: ??VANESSA DAILY MD Electronically Signed by: ??VANESSA DAILY MD Dic Date/Time: ??05/22/24 1414 Sign date/Time: ??05/22/24 1426 Procedure Note Vanessa Daily MD - 09/06/2024 [facility] Diagnostic Imaging Department [address] [place] [address] Patient: ERIKA WILLIS /Age/Sex: 1950 - 73 - M Unit#: [id number] Location/Status: [facility] Mnemonic/Ordering Site: [facility] Ordering Physician: MARY HUMPHREY MD CT Lung Screening Low Dose - 05/19/24 - 1041 Report Status:Signed History: 73 year-old 65 pack-year former smoker, asymptomatic, for lungcancer screening. Quit smoking 12 years ago. Known coronary artery disease.Multiple exposures. 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 Comparison: 05/19/23 Technique: Helical volumetric imaging of the thorax was performed, usinglow- dose technique, without IV contrast. DLP: 168.88 mGy/cm CTDIvol: 4.83 mGy [employer] VCT Iterative reconstruction technique Findings: Lungs and Airways: The trachea and central bronchial tree remain patent. Extensive centrilobular emphysema is again noted. Stable minimaljuxtapleural reticular opacity is seen in the right upper lobe and there is minimal juxtamediastinal atelectasis in the right middle lobe, unchanged. Solid, noncalcified pulmonary nodules include a new 5 mm right upperlobe nodule (image 69 series 3) and a new 4 mm right lower lobe nodule ([id number]). A few stable sub-4 mm nodules are scattered bilaterally. Pleura: No pleural or pericardial effusions are seen. Base of neck, mediastinum and heart: The heart remains normal in size.Severe, three-vessel coronary artery calcification is again noted. No developing thoracic lymphadenopathy is seen. Soft tissues: The overlying soft tissues are unremarkable. Abdomen: This study was performed without contrast and with lower thanstandard dose. These factors reduce the sensitivity for detection of small lesionsin the upper abdomen. No significant abnormality is seen. Impression: New right upper and lower lobe nodules measuring up to 5 mm, for which a follow-up low-dose CT is recommended in 6 months. Lung RADS 3: Probably benign findings - short-term followup suggested. [id number] [id number] [id number] Dictating Physician: VANESSA DAILY MD Electronically Signed by: VANESSA DAILY MD Dic Date/Time: 05/22/24 1414 Sign date/Time: 05/22/24 1426 Mary Humhprey MD IM CT PROCEDURES * Annual BMP Blood Test (02/01/2024) Pathologist [facility] Annual BMP Blood Test abstracted Historical Provider [facility] * (ABNORMAL) Lipid panel (01/27/2024) Pathologist [facility] LDL/HDL Ratio 3 0 - 4 Triglycerides 162(A) 0 - 150 mg/dL Cholesterol 179 0 - 200 mg/dL HDL 64 40 mg/dL LDL Cholesterol 83 0 - 100 mg/dL Blood Venous blood specimen / Unknown Historical Provider LAB BLOOD ORDERAB LES * Falls Risk Assessment (11/08/2023) Pathologist [facility] Falls Risk Assessment abstracted Historical Provider [facility] * Depression Screening (11/08/2023) Pathologist [facility] Depression Screening abstracted Historical Provider [facility] * Diabetes Foot Exam (2023) Pathologist [facility] Diabetes: Annual Foot Exam abstarcted Historical Provider [facility] * Colonoscopy (01/07/2023) Pathologist [facility] Colonoscopy abstracted Anatomical Region Laterality Modality Other Historical Provider [facility] * Hepatitis C Screening (02/11/2018) Pathologist [facility] Hepatitis C Screening abstracted Historical Provider [facility] from Last 3 Months or Most Recently Relevant to Health Maintenance Care Teams Leveler Helper Relationship Specialty Start Date End Date Rashaun Toney MD [address] [place] [address] PCP - General 09/13/1998
[2024-12-22 03:59] LABS: Syphilis Screen Nonreactive (Nonreactive)
[2024-12-22 17:28] LABS: Lyme Abs Screen <0.90 index
[2024-12-27 09:08] LABS: IgA 204 mg/dL (70-320); IgG 720 mg/dL (600-1540); IgM 64 mg/dL (50-300)
== END 2024-12-21 13:16 | disposition home or self-care (01) ==
LOC: HO.LAB 13:15
PROVIDERS: Psychiatry & Neurology Neurology; PCP Internal Medicine; Visit Provider Internal Medicine
DX: G62.9 Polyneuropathy, unspecified (principal)
CPT/HCPCS: 36415; 80048; 82550; 82607; 82746; 82784; 86334; 86617; 86618; 86780

== ENCOUNTER 2025-07-19 10:12 | Outpatient (AMB) | payer MEDICARE, BC, SELFPAY ==
--- NOTE | 2025-07-19 10:15 | A.OFFVIS_ITS ---
Intake Visit Reasons: 6 Months / PN Allergies No Known Allergies Allergy (Verified 07/12/25 06:53) HPI Comments Details: 74 yo man with chronic pain and cramping in feet and legs. He was initially seen in 2015 when he reported similar symptoms. He was also drinking alcohol at that time. He was still drinking, couple of beers, 3-4 times a week. No burning sensation. There was numbness in feet but not pain. 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 HE had another study done at [facility] in Nov, which I reviewed. It revealed worsening of the same neuropathy with significant axonal loss and mild to mod slowing. He is presenting with complaints of nocturnal leg cramping predominantly when in bed. He reports that the prescribed gabapentin has not provided the desired relief. No details regarding the precise onset or chronicity of these cramping episodes were disclosed; however, they cause significant discomfort at night. He has not trialed any other medications for symptom management aside from gabapentin. Currently, a modification to his treatment approach is being implemented, involving cessation of gabapentin and initiation of pregabalin to assess its efficacy. [facility] Medical History Peripheral neuropathy Alcohol abuse Review of Systems Const Details: - Musculoskeletal: Reports nocturnal leg cramping. - Neurologic: Denies relief from gabapentin; denies any other treatments tried. Physical Exam Neuro Other: Mental Status: Alert and oriented to person, place, and time. Normal attention. Normal spontaneous speech, fluency, and comprehension. No obvious issues with mood and memory. Affect is appropriate. Cranial Nerves: CN II: Visual alarcon full to confrontation, visual acuity intact. CN III, IV, : Pupils equal, round, reactive to light and accommodation. Extraocular movements are normal. CN V: Facial sensation is normal. CN VII: Facial movements symmetrical. CN VIII: Hearing intact to bedside conversation is normal. CN IX, X: Palate elevates symmetrically. CN XI: Shoulder shrug and head turn symmetrical. CN XII: Tongue midline without atrophy or fasciculations. Extrapyramidal: Full facial expressions and blinking. No rigidity. Movements are appropriate with no tremor or abnormality. Speech: Normal; no dysarthria or tremor. Extrem Other: Mental Status: Alert and oriented to person, place, and time. Normal attention. Normal spontaneous speech, fluency, and comprehension. No obvious issues with mood and memory. Affect is appropriate. Cranial Nerves: CN II: Visual alarcon full to confrontation, visual acuity intact. CN III, IV, : Pupils equal, round, reactive to light and accommodation. Extraocular movements are normal. CN V: Facial sensation is normal. CN VII: Facial movements symmetrical. CN VIII: Hearing intact to bedside conversation is normal. CN IX, X: Palate elevates symmetrically. CN XI: Shoulder shrug and head turn symmetrical. CN XII: Tongue midline without atrophy or fasciculations. Extrapyramidal: Full facial expressions and blinking. No rigidity. Movements are appropriate with no tremor or abnormality. Speech: Normal; no dysarthria or tremor. Assessment & Plan Assessment & Plan (1) Muscle cramp: Code(s): R25.2 - Cramp and spasm Category: Medical (2) Peripheral neuropathy: Comment: EMG/NCS LEs at off in 2015: Mild axonal SM PN EMG/NCS LEs at [facility] in Nov 2024: Mod axonal SM PN (reported as demyelinating but I don't think so). Code(s): G62.9 - Polyneuropathy, unspecified Category: Medical Qualifiers: Peripheral neuropathy type: polyneuropathy, unspecified Qualified Code(s): G62.9 - Polyneuropathy, unspecified Plan Impression: Mild axonal SM peripheral neuropathy and muscle cramping Rec: a: DC gabpentin, which is not working b: Try pregabilin 150mg one at night Medications: New pregabalin 150 mg PO BEDTIME 30 caps 0RF Coding Level of Care Code Est Pt Level 3 (54057) Diagnoses Muscle cramp R25.2 Peripheral polyneuropathy G62.9 Peripheral neuropathy type: polyneuropathy, unspecified
--- OUTSIDE RECORDS SUMMARY | 2025-07-19 11:30 | XMS_ITS ---
Author Name [facility] Organization Unknown Care Team Organization Name Specialty Phone Email Start Date End Da te [facility] AC 07/11/2025 [facility] 01/27/2023 07/10/2024 [facility] 09/29/2022 07/10/2024
--- OUTSIDE RECORDS SUMMARY | 2025-07-19 11:30 | XMS_ITS | Clinical Summary ---
Author Organization [facility] Address [address] [place] [address] Phone Care Team Providers Care Web Services Professional Name Role Phone Rashaun Toney MD Primary Care Provider [phone] Allergies No known active allergies Medications tamsulosin (FLOMAX) 0.4 mg 24 hr capsule Take 1 capsule (0.4 mg total) by mouth. Prescribed by Dr. Rivera Active mometasone (ELOCON) 0.1 % cream APPLY TO AFFECTED AREA DAILY DIRECTED. 45 g 1 11/02/20 24 Active Trelegy Ellipta 200-62.5-25 mcg inhaler INHALE 1 PUFF INTO THE LUNGS DAILY FOR 30 DAYS. 180 each 3 01/12/20 25 Active gabapentin (NEURONTIN) 300 mg capsule Take 1 capsule (300 mg total) by mouth 1 (one) time each day. for [address] Mckeon 01/21/20 25 Active multivit with minerals/lutein (MULTIVITAMIN 50 PLUS ORAL) Take by mouth 1 (one) time each day. 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 30 each 5 06/25/20 25 026 Active lisinopriL (PRINIVIL,ZESTR IL) 30 mg tablet TAKE 1 TABLET BY MOUTH EVERY DAY 90 tablet 1 01/27/20 25 025 Discontinued Active Problems Problem Noted Date Diagnosed Date Hepatic steatosis 06/25/2025 DM (diabetes mellitus), type 2 ([facility] V24, [facility] V28) 08/24/2024 Type 2 diabetes mellitus wit hout complication, without long-term current use of insulin ([facility] V24, [facility] V28) 05/11/2019 Hypoxia 11/30/2018 Requires supplemental oxygen 11/30/2018 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 ([facility] V24, [facility] V28) 05/26/2018 Centrilobular emphysema ([facility] V24, [facility] V2 8) 05/26/2018 Thoracic ascending aortic aneurysm ([facility] V24) 10/21/2017 Pulmonary nodules 10/20/2017 Neuropathy of both [...] Encounters Date Type Department Care Team Description 07/12/2025 1:22 PM EDT - 07/12/2025 11:59 PM EDT Hospital Encounter [facility] CT Scan [address] [place] [phone] Pulmonary nodule less than 6 mm determined by computed tomography of lung Discharge Disposition: Home or Self Care 06/29/2025 8:09 AM EDT - 06/29/2025 11:59 PM EDT Hospital Encounter Radiology Department - [address] [phone] Type 2 diabetes mellitus without complication, without long-term current use of insulin ([facility] V24, [facility] V28); Essential hypertension; Pure hypercholesterolemia; Stage 2 moderate COPD by GOLD classification ([facility] V24, [facility] V28); Aneurysm of ascending aorta without rupture ([facility] V24) Discharge Disposition: Home or Self Care 06/29/2025 Telephone Lung Screening Program - [place] [address] [facility] [address] [place] [phone] [facility] [place] 06/27/2025 Telephone Pulmonolgy - [place] [address] [facility] [address] [place] [phone] Ayaan Benjamin MD 06/25/2025 9:30 AM EDT Office Visit Adult Medicine [address] [phone] Li Aquino NP Stage 2 moderate COPD by GOLD classification ([facility] V24, [facility] V28) (Primary Dx); Hepatic steatosis; Essential hypertension; Type 2 diabetes mellitus without complication, without long-term current use of insulin ([facility] V24, [facility] V28); Pure hypercholesterolemia; Aneurysm of ascending aorta without rupture ([facility] V24) from Last 3 Months Immunizations Name Administration [...] motility COPD (chronic obstructive pu lmonary disease) (CMS/HCC V24, CMS/HCC V28) DX:COPD (chronic o bstructive pulmonary disease) (HCC) Tubular adenoma of colon [...] Assigned at Male 10/27/2024 2:55 PM EST Legal Sex Male 9:48 AM EST Gender Identity Male 10/27/2024 2:55 PM EST Sexual Orientation Straight 10/27/2024 2: 55 PM EST Obstetrics History Last Filed Vital Signs Vital Sign Reading Time Taken Comments Blood Pressure 148/68 06/25/2025 9:56 AM EDT Pulse 73 06/25/2025 9:32 AM EDT Temperature 36.3 C (97.3 F) 06/25/2025 9:32 AM EDT Respiratory Rate 16 04/02/2025 9:43 AM EDT Oxygen Saturation 94% 06/25/2025 9:32 AM EDT Inhaled Oxygen Concentration - - Weight 80.7 kg (178 lb) 06/25/2025 9:32 AM EDT Height 170.2 cm (5' 7 ) 06/25/2025 9:32 AM EDT Body Mass Index 27.88 06/25/2025 9:32 AM EDT Plan of Treatment Upcoming Encounters Date Type Department Care Team (Late st Contact Info) Description 07/24/2025 10:15 AM EDT Office Visit Adult [address] [phone] iL Aquino NP [address] [facility], [place] 10/08/2025 1:00 PM EST Office Visit Pulmonol - [address] [place] [phone] Ayaan Benjamin MD [address] [place] [phone] 01/21/2026 11:15 AM EST Office Visit Adult [address] [phone] Rashaun Toney MD [address] [place] [address] Health Maintenance Due Date Last Done Comments RSV Immunization Adult Patients (1 - Risk 60-74 years 1-dose series) 2010 Zoster Vaccines (2 of 3) 07/29/2012 06/03/2012 Medicare Annual Wellness Visit 10/31/2022 Social Influencers of Health Screening 10/31/2022 COVID-19 Vaccine ( season) 2024 10/28/2021, 03/14/2021, 02/14/2021 Diabetes: Annual Foot Exam 2024 2023 Lung Cancer Screening (Low Dose CT) 05/22/2025 05/22/2024, 05/19/2024, 05/22/2023, Additional history exists Influenza Vaccine (#1) 2025 , 2023, 09/09/2022, Additional history exists Diabetes: Blood Sugar Control Test (HGBA1C) 12/20/2025 06/19/2025, 02/09/2025, 06/20/2024, Additional history exists Colorectal Cancer Screening: Colonoscopy 01/07/2026 01/07/2023 Diabetes: Annual Urine Albumin-Creatinine Ratio (uACR) 02/09/2026 02/09/2025, 06/20/2024 Falls Risk Assessment 02/13/2026 02/13/2025, 023 Diabetes: Annual Retina Eye Exam 03/07/2026 03/07/2025 Diabetes: Annual GFR (Glomerular Filtration Rate) 06/19/2026 06/19/2025, 02/01/2024 Hypertension/CHF/CAD Annual BMP Blood Test 06/19/2026 06/19/2025, 02/01/2024 Cholesterol Screening (Lipid Panel) 06/19/2030 06/19/2025, 01/27/2024 DTaP,Tdap,and Td Vaccines (4 - Td or Tdap) 09/09/2032 09/09/2022, 06/03/2012, 05/04/2002 Pneumococcal Vaccine: 50+ Years Completed 08/31/2017, 11/03/2016 Hepatitis C Screening Completed 02/11/2018 Depression Screening Completed 06/25/2025, 11/08/20 Abdominal Aortic Aneurysm (AAA) Screen Completed 06/29/2025 HIB Vaccines Aged Out No longer eligi [...] patient's age to complete this topic Meningococcal B Vaccine Aged Out No l onger eligible based on patient's age to complete this topic RSV Immunization Patients Under 20 months Aged Out No longer eligible based on patient's age to complete this topic Varicella Vaccines Aged Out No longer eligible based on patient's age to complete this topic Procedures Procedure Name Priority Date/Time Associated Diagnosis Comments CT CHEST WO CONTRAST (LUNG-RADS F/U) Routine 07/12/2025 1:36 PM EDT Pulmonary nodule less than 6 mm determined by computed tomography of lung US ABDOMEN AORTIC ANEURYSM SCREENING Routine 06/29/2025 8:39 AM EDT Type 2 diabetes mellitus without complication, without long-term current use of insulin ([facility] V24, [facility] V28) Essential hypertension Pure hypercholesterolemia Stage 2 moderate COPD by GOLD classification (CMS/HCC V24, CMS/HCC V28) Aneurysm of ascending aorta without rupture ([facility] V24) BASIC METABOLIC PANEL Routine 06/19/2025 10:13 AM EDT Type 2 diabetes mellitus without complication, without long-term current use of insulin ([facility]/HCC V24, CMS/HCC V28) HEMOGLOBIN A1C Routine 06/19/2025 10:13 AM EDT Type 2 diabetes mellitus without complication, without long-term current use of insulin ([facility] V24, CMS/HCC V28) LIPID PANEL WITH REFLEX TO DIRECT LDL Routine 06/19/2025 10:13 AM EDT Type 2 diabetes mellitus without complication, without long-term current use of insulin ([facility] V24, [facility] V28) MICROALBUMIN CREATININE URINE RATIO Routine 02/09/2025 11:56 AM EDT Type 2 diabetes mellitus without complication, without long-term current use of insulin (CMS/HCC) Type 2 diabetes mellitus with other specified complication, without long-term current use of insulin (CMS/HCC V24, CMS/HCC V28) CT LUNG SCREENING LOW DOSE Routine 05/22/2024 2:26 PM EDT Encounter for screening for malignant neoplasm of respiratory organs DEPRESSION SCREENING Routine 11/08/2023 FALLS RISK ASSESSMENT Routine 11/08/2023 DIABETES FOOT EXAM Routine 2023 COLONOSCOPY Routine 01/07/2023 HEPATITIS C SCREENING Routine 02/11/2018 from Last 3 Months or Most Recently Relevant to Health Maintenance Results * CT Chest wo Contrast (Lung-RADS F/U) (07/12/2025 1:36 PM EDT) Anatomical Region Laterality Modality Body Computed Tomogra phy 07/17/2025 4:38 PM EDT Impressions 07/17/2025 4:51 PM EDT No suspicious interval change. There are some small lung nodules which are likely infectious or inflammatory. The patient can resume lung cancer screening LUNG RADS: Lung-RADS 2: BENIGN S Modifier (Significant or Potentially Significant Findings): None present No suspicious nonpulmonary findings. RECOMMENDATIONS: 12 month screening low dose CT -------- FINAL REPORT -------- Dictated By: Donnell Weber Dictated Date: 07/17/2025 16:38 ET Assigned Physician: Donnell Weber Reviewed and Electronically Signed By: Donnell Weber Signed Date: 07/17/2025 16:51 ET Workstation ID: [id number] Transcribed By: Self Edit Transcribed Date: 07/17/2025 16:38 ET Narrative 07/17/2025 4:51 PM EDT EXAMINATION: CT CHEST WITHOUT CONTRAST CLINICAL INFORMATION: Lung nodule. High cancer risk. Lung nodules on previous CT. COMPARISON: Portions of previous including 11/16/24 TECHNIQUE: Multidetector CT. Examination of the chest. Examination of the chest without IV contrast. Reformatting in the coronal and sagittal planes. DLP: 126 mGy-cm Dose optimization was performed including the use of low-dose iterative reconstruction technique with automatic exposure control based on patient size. Type of contrast: None Volume of IV contrast: None Volume of contrast discarded: 0 mL FINDINGS: LUNG: No suspicious abnormality of the trachea or mainstem bronchi. Round solid nodule posteromedial right lower lobe 07/12/25-0.4 cm (3/164) 11/16/24 0.4 cm (3/167) Import Dispatcher peripheral nodule in the lateral aspect of the left upper lobe 07/12/25-0.2 cm () 11/16/24-0.5 cm () There are a few scattered micronodules which are unchanged. There is underlying emphysema. There is no honeycomb formation. MEDIASTINUM: There are no enlarged mediastinal or hilar lymph nodes. No suspicious abnormality of the esophagus CARDIAC: The heart is not enlarged. No pericardial fluid or thickening CORONARY CALCIFICATION: There are marked coronary calcifications. VASCULAR: There is no thoracic aortic aneurysm. The main pulmonary artery is normal caliber PLEURA: There is no pleural fluid or pneumothorax AXILLA/CHEST WALL: There are no enlarged axillary lymph nodes. No chest wall mass demonstrated VISUALIZED UPPER ABDOMEN: No suspicious abnormality on limited assessment of the visualized upper abdomen. Probably unchanged cysts medial upper right kidney. MUSCULOSKELETAL: No suspicious focal bony lesion. Procedure Note Donnell Weber MD - 07/17/2025 EXAMINATION: CT CHEST WITHOUT CONTRAST CLINICAL INFORMATION: Lung nodule. High cancer risk. Lung nodules on previous CT. COMPARISON: Portions of previous including 11/16/24 TECHNIQUE: Multidetector CT. Examination of the chest. Examination of the chest without IV contrast. Reformatting in the coronal and sagittal planes. DLP: 126 mGy-cm Dose optimization was performed including the use of low-dose iterativereconstruction technique with automatic exposure control based on patientsize. Type of contrast: None Volume of IV contrast: None Volume of contrast discarded: 0 mL FINDINGS: LUNG: No suspicious abnormality of the trachea or mainstem bronchi. Round solid nodule posteromedial right lower lobe 07/12/25-0.4 cm (3/164) 11/16/24 0.4 cm (3/167) Import Dispatcher peripheral nodule in the lateral aspect of the left upperlobe 07/12/25-0.2 cm (87) 11/16/24-0.5 cm () There are a few scattered micronodules which are unchanged. There is underlying emphysema. There is no honeycomb formation. MEDIASTINUM: There are no enlarged mediastinal or hilar lymph nodes. Nosuspicious abnormality of the esophagus CARDIAC: The heart is not enlarged. No pericardial fluid or thickening CORONARY CALCIFICATION: There are marked coronary calcifications. VASCULAR: There is no thoracic aortic aneurysm. The main pulmonary arteryis normal caliber PLEURA: There is no pleural fluid or pneumothorax AXILLA/CHEST WALL: There are no enlarged axillary lymph nodes. No chestwall mass demonstrated VISUALIZED UPPER ABDOMEN: No suspicious abnormality on limited assessmentof the visualized upper abdomen. Probably unchanged cysts medial upperright kidney. MUSCULOSKELETAL: No suspicious focal bony lesion. IMPRESSION: No suspicious interval change. There are some small lung nodules which arelikely infectious or inflammatory. The patient can resume lung cancer screening LUNG RADS: Lung-RADS 2: BENIGN S Modifier (Significant or Potentially Significant Findings): Nonepresent No suspicious nonpulmonary findings. RECOMMENDATIONS: 12 month screening low dose CT -------- FINAL REPORT -------- Dictated By: Donnell Weber Dictated Date: 07/17/2025 16:38 ET Assigned Physician: Donnell Weber Reviewed and Electronically Signed By: Donnell Weber Signed Date: 07/17/2025 16:51 ET Workstation ID: [id number] Transcribed By: Self Edit Transcribed Date: 07/17/2025 16:38 ET us Mary Humphrey MD IMG CT PROCEDURES Final Result * US Abdomen Aortic Aneurysm Screening (06/29/2025 8:39 AM EDT) Anatomical Region Laterality Modality Abdominal aorta Ultrasound 06/29/2025 10:0 6 AM EDT Impressions 06/29/2025 10:17 AM EDT Ectatic abdominal aorta as described. The distal abdominal aorta measures up to 2.9 cm in AP diameter. -------- FINAL REPORT -------- Dictated By: Arline Cancino Dictated Date: 06/29/2025 10:06 ET Assigned Physician: Arline Cancino Reviewed and Electronically Signed By: Arline Cancino Signed Date: 06/29/2025 10:17 ET Workstation ID: [id number] Transcribed By: Self Edit Transcribed Date: 06/29/2025 10:06 ET Narrative 06/29/2025 10:17 AM EDT US ABDOMEN AORTIC ANEURYSM SCREENING ABDOMINAL AORTA SCREENING ULTRASOUND History: Abdominal aorta screening. Smoking history. Comparison: None. FINDINGS: The proximal aorta measures 2.3 cm in diameter. The mid aorta measures 2.7 cm in diameter, is tortuous, and contains atherosclerotic plaque. The distal aorta measures 2.9 cm in diameter and contains atherosclerotic plaque. No periaortic fluid collection is seen. The aortic bifurcation is normal in appearance. The proximal bilateral common iliac arteries are normal in caliber. Procedure Note Arline Cancino MD - 06/29/2025 US ABDOMEN AORTIC ANEURYSM SCREENING ABDOMINAL AORTA SCREENING ULTRASOUND History: Abdominal aorta screening. Smoking history. Comparison: None. FINDINGS: The proximal aorta measures 2.3 cm in diameter. The mid aortameasures 2.7 cm in diameter, is tortuous, and contains atheroscleroticplaque. The distal aorta measures 2.9 cm in diameter and containsatherosclerotic plaque. No periaortic fluid collection is seen. The aorticbifurcation is normal in appearance. The proximal bilateral common iliacarteries are normal in caliber. IMPRESSION: Ectatic abdominal aorta as described. The distal abdominal aorta measuresup to 2.9 cm in AP diameter. -------- FINAL REPORT -------- Dictated By: Arline Cancino Dictated Date: 06/29/2025 10:06 ET Assigned Physician: Arline Cancino Reviewed and Electronically Signed By: Arline Cancino Signed Date: 06/29/2025 10:17 ET Workstation ID: [id number] Transcribed By: Self Edit Transcribed Date: 06/29/2025 10:06 ET us Li Aquino NP IMG US PROCEDURES Final Resu lt * Lipid panel with reflex to direct LDL (06/19/2025 10:13 AM EDT) Cholesterol 159 0 - 200 mg/dL LAB CHEMISTRY METHOD 06/19/2025 1:15 PM EDT [facility] Triglycerides 140 0 - 150 mg/dL LAB CHEMISTRY METHOD 06/19/2025 1:15 PM EDT [facility] HDL 62 >=40 mg/dL LAB CHEMISTRY METHOD 06/19/2025 1:15 PM EDT [facility] LDL Calculated 69 0 - 100 mg/dL LAB CHEMISTRY METHOD 06/19/2025 1:15 PM EDT [facility] VLDL Cholesterol Andrade 28 mg/dL LAB CHEMISTRY METHOD 06/19/2025 1:15 PM EDT [facility] Non HDL Chol. (LDL+VLDL) 97 <145 mg/dL LAB CHEMISTRY METHOD 06/19/2025 1:15 PM EDT [facility] Chol/HDL Ratio 2.6 0.0 - 4.4 LAB CHEMISTRY METHOD 06/19/2025 1:15 PM EDT [facility] Blood Venous blood specimen / Unknown Venipuncture / Unknown 06/19/2025 10:13 AM EDT 06/19/2025 10:13 AM EDT us Ishmael AHN LAB BLOOD ORDERABLES Fin al Result [facility] [address] [place] [address], * (ABNORMAL) Hemoglobin A1c (06/19/2025 10:13 AM EDT) Hemoglobin A1C 6.7(H) <6.5 % LAB CHEMISTRY METHOD 06/19/2025 2:04 PM EDT [facility] Mean Bld Glu Estim. 146 mg/dL LAB CHEMISTRY METHOD 06/19/2025 2:04 PM EDT [facility] Blood Venous blood specimen / Unknown Venipuncture / Unknown 06/19/2025 10:13 AM EDT 06/19/2025 10:13 AM EDT us Ishmael AHN LAB BLOOD ORDERABLES Fin al Result [facility] [address] [place] [address], * (ABNORMAL) Basic metabolic panel (06/19/2025 10:13 AM EDT) Sodium 139 133 - 145 mmol/L LAB CHEMISTRY METHOD 06/19/2025 1:15 PM [facility] Potassium 4.2 3.5 - 5.5 mmol/L LAB CHEMISTRY METHOD 06/19/2025 1:15 PM [facility] Chloride 103 96 - 110 mmol/L LAB CHEMISTRY METHOD 06/19/2025 1:15 PM [facility] CO2 24 21 - 32 mmol/L LAB CHEMISTRY METHOD 06/19/2025 1:15 PM [facility] Anion Gap 12(H) 3 - 11 LAB CHEMISTRY METHOD 06/19/2025 1:15 PM [facility] Glucose 131(H) 70 - 100 mg/dL LAB CHEMISTRY METHOD 06/19/2025 1:15 PM [facility] BUN 14 5 - 25 mg/dL LAB CHEMISTRY METHOD 06/19/2025 1:15 PM [facility] Creatinine 0.87 0.70 - 1.30 mg/dL LAB CHEMISTRY METHOD 06/19/2025 1:15 PM [facility] eGFR 91 >=60 mL/min/1. 73m2 LAB CHEMISTRY METHOD 06/19/2025 1:15 PM [facility] Comment:Calculation based on the Chronic Kidney Disease Epidemiology Collaboration (CKD-EPI) equation refit without adjustment for race. BUN/Creatinine Ratio 16.1 LAB CHEMISTRY METHOD 06/19/2025 1:15 PM EDT [facility] Calcium 10.1 8.5 - 10.5 mg/dL LAB CHEMISTRY METHOD 06/19/2025 1:15 PM EDT [facility] Blood Venous blood specimen / Unknown Venipuncture / Unknown 06/19/2025 10:13 AM EDT 06/19/2025 10:13 AM EDT us Ishmael AHN LAB BLOOD ORDERABLES Fin al Result [facility] [address] [place] [address], [place] [phone] * Microalbumin creatinine urine ratio (02/09/2025 11:56 AM EDT) Creatinine, Urine 44.0 mg/dL LAB CHEMISTRY METHOD 02/09/2025 4:47 PM EDT [facility] Microalb, Ur <5.0 0.0 - 29.0 mg/L LAB CHEMISTRY METHOD 02/09/2025 4:47 PM EDT [facility] Microalb/Creat Ratio <11 <30 mg/g creat LAB CHEMISTRY METHOD 02/09/2025 4:47 PM EDT [facility] Urine Urine specimen obtained by clean catch procedure / Unknown Non-blood Collection / Unknown 02/09/2025 11:56 AM EDT 02/09/2025 11:56 AM EDT Rashaun Toney MD LAB URINE ORDERABLES Final Resul t Performing Organization Address [facility]/ZIP Co de Phone Number [facility] [address] [place] [address], [place] [phone] * CT LUNG SCREENING LOW DOSE (05/22/2024 2:26 PM EDT) Anatomical Region Laterality Modality Computed Tomogra phy 05/19/2024 10:2 4 AM EDT Narrative 05/22/2024 2:26 PM EDT [facility] Diagnostic Imaging Department [address] [place] [id number] Patient: ERIKA WILLIS /Age/Sex: 1950 - 73 - M Unit#: [id number] Location/Status: [facility]/REG CLI Mnemonic/[facility] Ordering Physician: MARY HUMPHREY MD CT Lung Screening Low Dose - 05/19/24 - 1041 Report Status:Signed History: 73 year-old 65 pack-year former smoker, asymptomatic, for lung cancer screening. Quit smoking 12 years ago. Known coronary artery disease. Multiple exposures. 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 Comparison: 05/19/23 Technique: Helical volumetric imaging of the thorax was performed, using low- dose technique, without IV contrast. DLP: 168.88 mGy/cm CTDIvol: 4.83 mGy Apsalar VCT Iterative reconstruction technique Findings: Lungs and [...] Probably benign findings - short-term followup suggested. [id number] [id number] [id number] Dictating Physician: VANESSA DAILY MD Electronically Signed by: VANESSA DAILY MD Dic Date/Time: 05/22/24 1414 Sign date/Time: 05/22/24 1426 Procedure Note Vanessa Daily MD - 09/06/2024 [facility] Diagnostic Imaging Department [address] [place] [address] Patient: WILLISERIKA AYALA D.O.B./Age/Sex: 1950 - 73 - M Unit#: [id number] Location/Status: [facility] CLI Mnemonic/Ordering Site: [facility] Ordering Physician: MARY HUMPHREY MD CT Lung Screening Low Dose - 05/19/24 - 1041 Report Status:Signed History: 73 year-old 65 pack-year former smoker, asymptomatic, for lungcancer screening. Quit smoking 12 years ago. Known coronary artery disease.Multiple exposures. 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 Comparison: 05/19/23 Technique: Helical volumetric imaging of the thorax was performed, usinglow- dose technique, without IV contrast. DLP: 168.88 mGy/cm CTDIvol: 4.83 mGy Apsalar VCT Iterative reconstruction technique Findings: Lungs and [...] new 4 mm right lower lobe nodule ([id number]). A few stable sub-4 mm nodules are [...] Probably benign findings - short-term followup suggested. [id number] [id number] [id number] Dictating Physician: VANESSA DAILY MD Electronically Signed by: VANESSA DAILY MD Dic Date/Time: 05/22/24 1414 Sign date/Time: 05/22/24 1426 Mary Humphrey MD [facility] CT PROCEDURES Final Result * Falls Risk Assessment (11/08/2023) Falls Risk Assessment abstracted Christiano Provider HEALTH MAINTENANCE Final Result * Depression Screening (11/08/2023) Depression Screening abstracted Historical Provider HEALTH MAINTENANCE Final Result * Diabetes Foot Exam (2023) Pathologist [facility] Diabetes: Annual Foot Exam abstarcted Historical Provider HEALTH MAINTENANCE Final Result * Colonoscopy (01/07/2023) Colonoscopy abstracted Anatomical Region Laterality Modality Other Historical Provider HEALTH MAINTENANCE Final Result * Hepatitis C Screening (02/11/2018) Pathologist [facility] Hepatitis C Screening abstracted Historical Provider HEALTH MAINTENANCE Final Result from Last 3 Months or Most Recently Relevant to Health Maintenance Insurance MEDICARE [facility] Care Teams Web Services Professional Relationship Specialty Start Date End Date Rashaun Toney MD [address] [place] [address] PCP - General 09/13/1998
== END 2025-07-19 10:23 | disposition home or self-care (01) ==
LOC: HO.HSM 10:13
PROVIDERS: PCP Internal Medicine; Referring Provider Internal Medicine; Visit Provider Psychiatry & Neurology Neurology
DX: R25.2 Cramp and spasm (principal); G62.9 Polyneuropathy, unspecified
CPT/HCPCS: 99213

== ENCOUNTER → 2025-07-19 10:12 | Outpatient (BNVA) | payer MEDICARE, BC, SELFPAY | PROVIDERS: PCP Internal Medicine; Referring Provider Internal Medicine; Visit Provider Psychiatry & Neurology Neurology | DX: R25.2 Cramp and spasm (principal); G62.9 Polyneuropathy, unspecified | CPT/HCPCS: 99212 ==

== ENCOUNTER 2025-08-30 08:54 | Outpatient (AMB) | payer MEDICARE, BC, SELFPAY ==
--- NOTE | 2025-08-30 09:07 | A.OFFVIS_ITS ---
Intake Visit Reasons: 4 weeks for PN Allergies No Known Allergies Allergy (Verified 07/12/25 06:53) HPI Comments Details: 74 yo man with chronic pain and cramping in feet and legs. He was initially seen in 2015 when he reported similar symptoms. He was also drinking alcohol at that time. He was still drinking, couple of beers, 3-4 times a week. No burning sensation. There was numbness in feet but not pain. 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 HE had another study done at [facility] in Nov, which I reviewed. It revealed worsening of the same neuropathy with significant axonal loss and mild to mod slowing. He is presenting with complaints of nocturnal leg cramping predominantly when in bed. He reports that the prescribed gabapentin has not provided the desired relief. No details regarding the precise onset or chronicity of these cramping episodes were disclosed; however, they cause significant discomfort at night. He has not trialed any other medications for symptom management aside from gabapentin. Currently, a modification to his treatment approach is being implemented, involving cessation of gabapentin and initiation of pregabalin to assess its efficacy. [facility] Medical History Peripheral neuropathy Alcohol abuse Review of Systems Const Details: - Musculoskeletal: Reports nocturnal leg cramping. - Neurologic: Denies relief from gabapentin; denies any other treatments tried. Physical Exam Neuro Other: Mental Status: Alert and oriented to person, place, and time. Normal attention. Normal spontaneous speech, fluency, and comprehension. No obvious issues with mood and memory. Affect is appropriate. Cranial Nerves: CN II: Visual alarcon full to confrontation, visual acuity intact. CN III, IV, : Pupils equal, round, reactive to light and accommodation. Extraocular movements are normal. CN V: Facial sensation is normal. CN VII: Facial movements symmetrical. CN VIII: Hearing intact to bedside conversation is normal. CN IX, X: Palate elevates symmetrically. CN XI: Shoulder shrug and head turn symmetrical. CN XII: Tongue midline without atrophy or fasciculations. Fasciculations are noted in both calf areas but not in other areas of his arms trunk or tongue. Deep tendon reflexes are 2+ with flexor plantars. Extrapyramidal: Full facial expressions and blinking. No rigidity. Movements are appropriate with no tremor or abnormality. Speech: Normal; no dysarthria or tremor. Assessment & Plan Assessment & Plan (1) Peripheral neuropathy: Comment: EMG/NCS LEs at [facility] in 2016: Mild axonal SM PN EMG/NCS LEs at [facility] in Nov 2024: Mod axonal SM PN (reported as demyelinating but I don't think so). Code(s): G62.9 - Polyneuropathy, unspecified Category: Medical Qualifiers: Peripheral neuropathy type: polyneuropathy, unspecified Qualified Code(s): G62.9 - Polyneuropathy, unspecified (2) Muscle cramp: Comment: Meds tried for cramps: Gabapentin, pregabalin Code(s): R25.2 - Cramp and spasm Category: Medical (3) Spinal stenosis: Code(s): M48.00 - Spinal stenosis, site unspecified Category: Medical Qualifiers: Spinal region: lumbar Neurogenic claudication status: without neurogenic claudication Qualified Code(s): M48.061 - Spinal stenosis, lumbar region without neurogenic claudication Plan Impression: 1. Muscle cramps due to underlying neuromuscular disorder 2. Peripheral neuropathy 3. Chronic low back pain 4. Bilateral calf area cramps and fasciculations with no evidence of fasciculation in other areas of his body. With that information lumbosacral spinal stenosis is 1 consideration. Fasciculations were going on for more than a year suggesting a relatively benign reason such as neuropathy/polyradiculapathy instead of motor neuron disease. Clinical follow- up would continue to see if any extension of this problem. Rec: a. Try carbamazepine 200mg q HS b. MRI of lumbosacral spine to rule out spinal stenosis Orders: Orders MR lumbar spine wo con Today M48.061 - Spinal stenosis, lumbar region without neurogenic claudication Medications: New carbamazepine (Epitol) 200 mg orally one at bedtime; 30 tabs 0RF Discontinued pregabalin Discontinued Reason: Doctor's Order 150 mg PO BEDTIME 30 caps 0RF Coding Level of Care Code Est Pt Level 4 (35568) Diagnoses Peripheral polyneuropathy G62.9 Peripheral neuropathy type: polyneuropathy, unspecified Muscle cramp R25.2 Spinal stenosis of lumbar region without neurogenic claudication M48.061 Spinal region: lumbar Neurogenic claudication status: without neurogenic claudication
== END 2025-08-30 09:24 | disposition home or self-care (01) ==
LOC: HO.HSM 08:55
PROVIDERS: PCP Internal Medicine; Visit Provider Psychiatry & Neurology Neurology
DX: G62.9 Polyneuropathy, unspecified (principal); R25.2 Cramp and spasm; M48.061 Spinal stenosis, lumbar region without neurogenic claudication
CPT/HCPCS: 99214

== ENCOUNTER → 2025-08-30 08:54 | Outpatient (BNVA) | payer MEDICARE, BC, SELFPAY | PROVIDERS: PCP Internal Medicine; Visit Provider Psychiatry & Neurology Neurology | DX: G62.9 Polyneuropathy, unspecified (principal); R25.2 Cramp and spasm; M48.061 Spinal stenosis, lumbar region without neurogenic claudication; G89.29 Other chronic pain; M54.9 Dorsalgia, unspecified; F10.20 Alcohol dependence, uncomplicated | CPT/HCPCS: 99212 ==

== ENCOUNTER → 2025-09-19 18:19 | Outpatient (BNV) | payer MEDICARE, BC, SELFPAY | PROVIDERS: PCP Internal Medicine; Visit Provider Radiology Diagnostic Radiology | DX: M48.061 Spinal stenosis, lumbar region without neurogenic claudication (principal); M47.816 Spondylosis without myelopathy or radiculopathy, lumbar region; N28.1 Cyst of kidney, acquired; N32.3 Diverticulum of bladder; I77.811 Abdominal aortic ectasia | CPT/HCPCS: 72148 ==

== ENCOUNTER 2025-09-19 18:21 | Outpatient (REF) | payer MEDICARE, BC, SELFPAY ==
--- NOTE | ~2025-09-19 | MR_ITS ---
EXAMINATION: MR LUMBAR SPINE WITHOUT CONTRAST CLINICAL INFORMATION: M 48.061. Spinal stenosis, lumbar region without neurogenic claudication. COMPARISON: None available. TECHNIQUE: MRI of the lumbar spine was obtained using routine sequences without contrast. FINDINGS: Last rib-bearing vertebra labeled T12. No bone marrow STIR signal abnormality. Bone marrow inhomogeneity throughout the axial skeleton. Fatty-replaced bone marrow in the sacrum. 2 mm retrolisthesis, L5-S1, L2-3 and L1-2. Conus medullaris ends at pedicle of L1 with normal signal. 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 T11-12: No disc herniation. No neuroforamina stenosis. T12-L1: No disc herniation. No neuroforamina stenosis. L1-2: Grade 1 retrolisthesis. Broad-based disc bulging. Facet joint and ligamentum flavum hypertrophy. Reduced AP diameter of thecal sac and bilateral neuroforamina narrowing. L2-3: Broad-based disc bulging. Facet joint and ligamentum flavum hypertrophy. Reduced AP diameter of the thecal sac and neuroforamina. L3-4: Basis bulging. Facet joint and ligamentum flavum hypertrophy. Central spinal canal and bilateral neuroforamina stenosis encroaching the neural elements. L4-5: Broad-based disc bulging. Facet joint and ligamentum flavum hypertrophy. Central spinal canal and bilateral neuroforamina stenosis encroaching the neural elements. L5-S1: Broad-based disc bulging. Facet joint and ligamentum flavum hypertrophy resulting in reduced AP diameter of the thecal sac. There is prominent epidural fat in a circumferential fashion. Bilateral neuroforamina stenosis compressing the L5 exiting nerve roots. There is fatty atrophy of the lower lumbar muscles. No prevertebral compartment hematoma, mass or fluid collection. Infrarenal abdominal aorta diameter is 3 cm. Multifocal, different sized cysts exophytic and renal cortex hyperintense T2 cystic lesions, both kidneys. Trabeculated urinary bladder wall with a small diverticulum. MR/MR lumbar spine wo con IMPRESSION: Multilevel thoracolumbar spondylosis resulting in grade 1 retrolisthesis L1 to, L2-3, L3-4 and L5-S1 levels with central spinal canal and bilateral neuroforamina stenosis compressing the neural elements at L5-S1 and to a lesser extent L4-5, L3-4 and L2-3 levels. Trabeculated urinary bladder wall with small diverticulum. Urinary outlet obstruction cannot be excluded. Bilateral renal cysts. 3 cm ectasia, infrarenal abdominal aorta. Electronically signed by: Phillip Cleaning MD 09/19/2025 08:01 PM EDT
--- OUTSIDE RECORDS SUMMARY | 2025-09-19 20:21 | XMS_ITS | Clinical Summary ---
Author Organization [facility] Address [address] [place] [address] Phone Care Team Providers Care Automotive Tire Tester Name Role Phone Rashaun Toney MD Primary Care Provider [phone] Allergies No known active allergies Medications tamsulosin (FLOMAX) 0.4 mg 24 hr capsule Take 2 capsules (0.8 mg total) by mouth 1 (one) time each day. Prescribed by Dr. Rivera Active mometasone (ELOCON) 0.1 % cream APPLY TO AFFECTED AREA DAILY DIRECTED. 45 g 1 11/02/20 24 Active Trelegy Ellipta 200-62.5-25 mcg inhaler INHALE 1 PUFF INTO THE LUNGS DAILY FOR 30 DAYS. 180 each 3 01/12/20 25 Active multivit with minerals/lutein (MULTIVITAMIN 50 PLUS ORAL) Take by mouth 1 (one) time each day. OTC Active ipratropium-alb uteroL (Combivent Respimat) 20-100 mcg/actuation inhalerIndicati ons:Personal history of nicotine dependence,Order Department Supervisor nitish obstructive pulmonary disease, unspecified (CMS/HCC V24, [...] 30 each 5 06/25/20 25 026 Active carBAMazepine (TEGretol) 200 mg tablet Take 1 tablet (200 mg total) by mouth at bedtime. at bedtime. Prescribed by Dr. Stuart 08/30/20 Active amLODIPine (NORVASC) 2.5 mg tablet Take 1 tablet (2.5 mg total) by mouth 1 (one) time each day. 30 each 11 09/05/20 25 026 Active pregabalin (LYRICA) 150 mg capsule Take 1 capsule (150 mg total) by mouth 1 (one) time each day. at bedtime Prescribed by Neurologist Dr. 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 ([facility] V24, [facility] V28) 05/26/2018 Centrilobular emphysema ([facility] V24, [facility] V2 8) 05/26/2018 Thoracic ascending aortic aneurysm ([facility] V24) 10/21/2017 Pulmonary nodules 10/20/2017 Neuropathy [...] Encounters Date Type Department Care Team Description 09/05/2025 10:30 AM EDT Office Visit Adult [address] [phone] Li Aquino, JIM Primary hypertension (Primary Dx); Neuropathy of both feet; Prediabetes; Need for prophylactic vaccination and inoculation against influenza 08/01/2025 8:45 AM EDT Office Visit [address] [phone] Li Aquino, JIM Sore throat (Primary Dx); Primary hypertension; Stage 2 moderate COPD by GOLD classification (CMS/HCC V24, CMS/HCC V28); Aneurysm of ascending aorta without rupture (CMS/HCC V24) 07/12/2025 1:22 PM EDT - 07/12/2025 11:59 PM EDT Hospital Encounter [facility] CT Scan [address] [place] [phone] Pulmonary nodule less than 6 mm determined by computed tomography of lung Discharge Disposition: Home or Self Care 06/29/2025 8:09 AM EDT - 06/29/2025 11:59 PM EDT Hospital Encounter Radiology Department - [address] [phone] Type 2 diabetes mellitus without complication, without long-term current use of insulin (CMS/HCC V24, CMS/HCC V28); Essential hypertension; Pure hypercholesterolemia; Stage 2 moderate COPD by GOLD classification (CMS/HCC V24, CMS/HCC V28); Aneurysm of ascending aorta without rupture (CMS/HCC V24) Discharge Disposition: Home or Self Care 06/29/2025 Telephone Lung Screening Program - [address] [phone] [facility] [place] 06/27/2025 Telephone Pulmonology - [place] [address] [facility] [address] [place] [address] Ayaan Benjamin MD 06/25/2025 9:30 AM EDT Office Visit Adult Medicine [address] [phone] Li Aquino NP Stage 2 moderate COPD by GOLD classification (CMS/HCC V24, CMS/HCC V28) (Primary Dx); Hepatic steatosis; Essential hypertension; Type 2 diabetes mellitus without complication, without long-term current use of insulin (CMS/HCC V24, [facility] V28); Pure hypercholesterolemia; Aneurysm of ascending aorta without rupture ([facility] V24) from Last 3 Months Immunizations Immunization Administration Dates Next Due Influenza trivalent, 0.5mL ( Fluad) 65yo and older 09/05/2025 Influenza trivalent, 0.5mL ( Fluzone High-dose) 65yo [...] V28) DX:COPD (chronic o bstructive pulmonary disease) ([facility]) Tubular adenoma of colon DX:Tubu lar adenoma of colon Hypertension Hyperlipidemia Family History Relation Name Status Comments Father thyroid cancer Mother melanoma 73 Sister 1 Alive Sister 2 Alive Social History Tobacco Use Types Packs/Day Years Used Date Smoking Tobacco: Former Cigarettes 0.5 42 1 - 09/06/2012 Smokeless Tobacco: Never Alcohol Use Standard Drinks/Week Comments Yes 12 (1 standard drink = 0.6 oz pu re alcohol) Housing Instability Answer Date Recorde d Are you worried that in the next 2 months you may not have stable housing? No 09/05/2025 Food Access & Nutrition Answer Date Rec orded Do you have access to a vari ety of food including fruits and vegetables? Yes 09/05/2025 Access to Healthcare Answer Date Record ed Within the last 3 months, ho w many times did you visit the emergency department for your medical care? 0 09/05/2025 Health Literacy Answer Date Recorded How often do you need to hav e someone help you when you read instructions, pamphlets, or other written material from your doctor or pharmacy? Never 09/05/2025 Caregiver: How often do you need to have someone help you when you read instructions, pamphlets, or other written material from your doctor or pharmacy? Not on file 09/05/2025 Financial Risk Answer Date Recorded How hard is it for you to pa y for the very basics like food, housing, medical care, and air conditioning / heating? Not very hard 09/05/2025 Transportation Answer Date Recorded Has the lack of transportati on kept you from meetings, work, or from getting things needed for daily living? No Has the lack of transportati on kept you from medical appointments or from getting medications? No 09/05/2025 Social Isolation Answer Date Recorded How often do you feel lonely or isolated from th ose around you? Never 09/05/2025 Food Risk Answer Date Recorded Within the past 12 months we worried whether our food would run out before we got money to buy more. Never true 09/05/2025 Within the past 12 months th e food we bought just didn't last and we didn't have money to get more. Never true 09/05/2025 Dependent Care Answer Date Recorded Do you need help finding or paying for care for your loved ones. For example, child protective services social worker or elderly care for an older adult? No 09/05/2025 Education Answer Date Recorded Do you think completing more education or training, like finishing a GED, going to college, or learning a trade, would be helpful for you? No 09/05/2025 Employment and Income Answer Date Recor ded During the last four weeks, have you been actively looking for work? No 09/05/2025 Living Situation Answer Date Recorded What is your living situation? Unrecognized valu e 09/05/2025 Sex and Gender Information Value Date Recorded Sex Assigned at Male 10/27/2024 2:55 PM EST Legal Sex Male 9:48 AM EST Gender Identity Male 10/27/2024 2:55 PM EST Sexual Orientation Straight 10/27/2024 2: 55 PM EST Obstetrics History Last Filed Vital Signs Vital Sign Reading Time Taken Comments Blood Pressure 140/76 09/05/2025 10:54 AM EDT Pulse 78 09/05/2025 10:34 AM EDT Temperature 36.3 C (97.4 F) 09/05/2025 10:34 AM EDT Respiratory Rate 14 08/01/2025 8:40 AM EDT Oxygen Saturation 94% 09/05/2025 10:34 AM EDT Inhaled Oxygen Concentration - - Weight 82.6 kg (182 lb) 09/05/2025 10:34 AM EDT Height 170.2 cm (5' 7 ) 09/05/2025 10:34 AM EDT Body Mass Index 28.51 09/05/2025 10:34 AM EDT Plan of Treatment Upcoming Encounters Date Type Department Care Team (Late st Contact Info) Description 10/08/2025 1:00 PM EST Office Visit Pulmonology - [place] [address] [facility] [address] [place] [address] Ayaan Benjamin MD [address] [place] [phone] 10/09/2025 11:00 AM EST Office Visit Adult Medicine [address] [phone] Li Aquino NP [address] [place], [place] 01/21/2026 11:15 AM EST Office Visit Adult [address] [phone] Rashaun Toney MD [address] [place], [place] Health Maintenance Due Date Last Done Comments Zoster Vaccines (2 of 3) 07/29/2012 06/03/2012 Medicare Annual Wellness Visit 10/31/2022 COVID-19 Vaccine ( season) 2025 10/28/2021, 03/14/2021, 02/14/2021 RSV Immunization Adult Patients (1 - 1-dose 75+ series) 2025 Colorectal Cancer Screening: Colonoscopy 01/07/2026 01/07/2023 Diabetes: Blood Sugar Control Test (HGBA1C) 01/27/2026 07/30/2025, 06/19/2025, 02/09/2025, Additional history exists Diabetes: Annual Urine Albumin-Creatinine Ratio (uACR) 02/09/2026 02/09/2025, 06/20/2024 Falls Risk Assessment 02/13/2026 02/13/2025, 023 Diabetes: Annual Retina Eye Exam 03/07/2026 03/07/2025 Lung Cancer Screening (Low Dose CT) 07/12/2026 07/12/2025, 05/22/2024, 05/19/2024, Additional history exists Diabetes: Annual GFR (Glomerular Filtration Rate) 07/30/2026 07/30/2025, 06/19/2025, 02/01/2024 Hypertension/CHF/CAD Annual BMP Blood Test 07/30/2026 07/30/2025, 06/19/2025, 02/01/2024 Diabetes: Annual Foot Exam 09/05/202609/05, 09/05/2025, 09/05/2025, Additional history exists Social Influencers of Health Screening 09/05/2026 09/05/2025 Cholesterol Screening (Lipid Panel) 06/19/2030 06/19/2025, 01/27/2024 DTaP,Tdap,and Td Vaccines (4 - Td or Tdap) 09/09/2032 09/09/2022, 06/03/2012, 05/04/2002 Pneumococcal Vaccine: 50+ Years Completed 08/31/2017, 11/03/2016 Hepatitis C Screening Completed 02/11/2018 Depression Screening Completed 06/25/2025, 11/08/20 Abdominal Aortic Aneurysm (AAA) Screen Completed 06/29/2025 Influenza Vaccine Completed 09/05/2025, , 2023, Additional history exists HIB Vaccines Aged Out [...] Procedure Name Priority Date/Time Associated Diagnosis Comments HEMOGLOBIN A1C Routine 07/30/2025 9:25 AM EDT Type 2 diabetes mellitus without complication, without long-term current use of insulin ([facility] V24, CMS/HCC V28) Essential hypertension Pure hypercholesterolemia Stage 2 moderate COPD by GOLD classification (CMS/HCC V24, CMS/HCC V28) Aneurysm of ascending aorta without rupture (CMS/HCC V24) COMPREHENSIVE METABOLIC PANEL Routine 07/30/2025 9:22 AM EDT Type 2 diabetes mellitus without complication, without long-term current use of insulin (CMS/HCC V24, CMS/HCC V28) Essential hypertension Pure hypercholesterolemia Stage 2 moderate COPD by GOLD classification (CMS/HCC V24, CMS/HCC V28) Aneurysm of ascending aorta without rupture (CMS/HCC V24) CT CHEST WO CONTRAST (LUNG-RADS F/U) Routine 07/12/2025 1:36 PM EDT Pulmonary nodule less than 6 mm determined by computed tomography of lung US ABDOMEN AORTIC ANEURYSM SCREENING Routine 06/29/2025 8:39 AM EDT Type 2 diabetes mellitus without complication, without long-term current use of insulin (CMS/HCC V24, CMS/HCC V28) Essential hypertension Pure hypercholesterolemia Stage 2 moderate COPD by GOLD classification (CMS/HCC V24, CMS/HCC V28) Aneurysm of ascending aorta without rupture (CMS/HCC V24) BASIC METABOLIC PANEL Routine 06/19/2025 10:13 AM EDT Type 2 diabetes mellitus without complication, without long-term current use of insulin (CMS/HCC V24, CMS/HCC V28) HEMOGLOBIN A1C Routine 06/19/2025 10:13 AM EDT Type 2 diabetes mellitus without complication, without long-term current use of insulin (CMS/HCC V24, CMS/HCC V28) LIPID PANEL WITH REFLEX TO DIRECT LDL Routine 06/19/2025 10:13 AM EDT Type 2 diabetes mellitus without complication, without long-term current use of insulin (CMS/HCC V24, CMS/HCC V28) MICROALBUMIN CREATININE URINE RATIO Routine 02/09/2025 [...] Recently Relevant to Health Maintenance Results * (ABNORMAL) Hemoglobin A1c (07/30/2025 9:25 AM EDT) Only the most recent of2 resultswithin the time period is included. Hemoglobin A1C 6.7(H) <6.5 % LAB CHEMISTRY METHOD 07/30/2025 12:26 PM EDT [facility] Mean Bld Glu Estim. 146 mg/dL LAB CHEMISTRY METHOD 07/30/2025 12:26 PM EDT [facility] Blood Venous blood specimen / Unknown Venipuncture / Unknown 07/30/2025 9:25 AM EDT 07/30/2025 9:25 AM EDT us Li Aquino FOOD QUALITY TESTER LAB BLOOD ORDERABLES Final R esult [facility] [address] [place] [address], * (ABNORMAL) Comprehensive metabolic panel (07/30/2025 9:22 AM EDT) Sodium 137 133 - 145 mmol/L LAB CHEMISTRY METHOD 07/30/2025 2:07 PM [facility] Potassium 4.4 3.5 - 5.5 mmol/L LAB CHEMISTRY METHOD 07/30/2025 2:07 PM [facility] Chloride 105 96 - 110 mmol/L LAB CHEMISTRY METHOD 07/30/2025 2:07 PM [facility] CO2 27 21 - 32 mmol/L LAB CHEMISTRY METHOD 07/30/2025 2:07 PM [facility] Anion Gap 5 3 - 11 LAB CHEMISTRY METHOD 07/30/2025 2:07 PM [facility] Glucose 130(H) 70 - 100 mg/dL LAB CHEMISTRY METHOD 07/30/2025 2:07 PM [facility] BUN 15 5 - 25 mg/dL LAB CHEMISTRY METHOD 07/30/2025 2:07 PM [facility] Creatinine 0.81 0.70 - 1.30 mg/dL LAB CHEMISTRY METHOD 07/30/2025 2:07 PM [facility] eGFR 93 >=60 mL/min/1. 73m2 LAB CHEMISTRY METHOD 07/30/2025 2:07 PM [facility] Comment:Calculation based on the Chronic Kidney Disease Epidemiology Collaboration (CKD-EPI) equation refit without adjustment for race. BUN/Creatinine Ratio 18.5 LAB CHEMISTRY METHOD 07/30/2025 2:07 PM [facility] Calcium 9.5 8.5 - 10.5 mg/dL LAB CHEMISTRY METHOD 07/30/2025 2:07 PM [facility] AST (SGOT) 30 10 - 42 unit/L LAB CHEMISTRY METHOD 07/30/2025 2:07 PM [facility] ALT (SGPT) 28 10 - 60 unit/L LAB CHEMISTRY METHOD 07/30/2025 2:07 PM [facility] Alkaline Phosphatase 99 42 - 121 unit/L LAB CHEMISTRY METHOD 07/30/2025 2:07 PM EDT [facility] Total Protein 7.3 6.0 - 8.0 g/dL LAB CHEMISTRY METHOD 07/30/2025 2:07 PM EDT [facility] Albumin 4.2 3.2 - 5.0 g/dL LAB CHEMISTRY METHOD 07/30/2025 2:07 PM EDT [facility] Total Bilirubin 0.5 0.0 - 1.4 mg/dL LAB CHEMISTRY METHOD 07/30/2025 2:07 PM EDT [facility] Blood Venous blood specimen / Unknown Venipuncture / Unknown 07/30/2025 9:22 AM EDT 07/30/2025 9:22 AM EDT us Li Aquino FOOD QUALITY TESTER LAB BLOOD ORDERABLES Final R esult [facility] [address] [place] [address], [place] [phone] * CT Chest wo Contrast (Lung-RADS F/U) [...] Signed Date: 07/17/2025 16:51 ET Workstation ID: [id number] Transcribed By: Self Edit Transcribed Date: 07/17/2025 [...] 07/12/25-0.4 cm (3/164) 11/16/24 0.4 cm (3/167) Die Cutter Apprentice peripheral nodule in the lateral aspect of the left upper lobe 07/12/25-0.2 cm (87) 11/16/24-0.5 cm () There [...] 07/12/25-0.4 cm (3/164) 11/16/24 0.4 cm (3/167) Die Cutter Apprentice peripheral nodule in the lateral aspect of the left upperlobe 07/12/25-0.2 cm (3/87) 11/16/24-0.5 cm (3/85) There are a few scattered micronodules which [...] Signed Date: 07/17/2025 16:51 ET Workstation ID: [id number] Transcribed By: Self Edit Transcribed Date: 07/17/2025 [...] Signed Date: 06/29/2025 10:17 ET Workstation ID: [id number] Transcribed By: Self Edit Transcribed Date: 06/29/2025 [...] Signed Date: 06/29/2025 10:17 ET Workstation ID: [id number] Transcribed By: Self Edit Transcribed Date: 06/29/2025 10:06 ET us Li Aquino FOOD QUALITY TESTER IMG US PROCEDURES Final Resu lt * Lipid panel with reflex to direct LDL (06/19/2025 10:13 AM EDT) Cholesterol 159 0 - 200 mg/dL LAB CHEMISTRY METHOD 06/19/2025 1:15 PM EDT [facility] Triglycerides 140 0 - 150 mg/dL LAB CHEMISTRY METHOD 06/19/2025 1:15 PM EDT [facility] HDL 62 >=40 mg/dL LAB CHEMISTRY METHOD 06/19/2025 1:15 PM EDT [facility] LDL Calculated 69 0 - 100 mg/dL LAB CHEMISTRY METHOD 06/19/2025 1:15 PM EDT [facility] VLDL Cholesterol Andrade 28 mg/dL LAB CHEMISTRY METHOD 06/19/2025 1:15 PM EDT [facility] Non HDL Chol. (LDL+VLDL) 97 <145 mg/dL LAB CHEMISTRY METHOD 06/19/2025 1:15 PM EDT [facility] Chol/HDL Ratio 2.6 0.0 - 4.4 LAB CHEMISTRY METHOD 06/19/2025 1:15 PM EDT [facility] Blood Venous blood specimen / Unknown Venipuncture / Unknown 06/19/2025 10:13 AM EDT 06/19/2025 10:13 AM EDT us Ishmael AHN LAB BLOOD ORDERABLES Fin al Result [facility] [address] [place] [address], * (ABNORMAL) Basic metabolic panel (06/19/2025 10:13 AM EDT) Sodium 139 133 - 145 mmol/L LAB CHEMISTRY METHOD 06/19/2025 1:15 PM EDT [facility] Potassium 4.2 3.5 - 5.5 mmol/L LAB CHEMISTRY METHOD 06/19/2025 1:15 PM [facility] Chloride 103 96 - 110 mmol/L LAB CHEMISTRY METHOD 06/19/2025 1:15 PM [facility] CO2 24 21 - 32 mmol/L LAB CHEMISTRY METHOD 06/19/2025 1:15 PM [facility] Anion Gap 12(H) 3 - 11 LAB CHEMISTRY METHOD 06/19/2025 1:15 PM [facility] Glucose 131(H) 70 - 100 mg/dL LAB CHEMISTRY METHOD 06/19/2025 1:15 PM [facility] BUN 14 5 - 25 mg/dL LAB CHEMISTRY METHOD 06/19/2025 1:15 PM [facility] Creatinine 0.87 0.70 - 1.30 mg/dL LAB CHEMISTRY METHOD 06/19/2025 1:15 PM [facility] eGFR 91 >=60 mL/min/1. 73m2 LAB CHEMISTRY METHOD 06/19/2025 1:15 PM [facility] Comment:Calculation based on the Chronic Kidney Disease Epidemiology Collaboration (CKD-EPI) equation refit without adjustment for race. BUN/Creatinine Ratio 16.1 LAB CHEMISTRY METHOD 06/19/2025 1:15 PM [facility] Calcium 10.1 8.5 - 10.5 mg/dL LAB CHEMISTRY METHOD 06/19/2025 1:15 PM [facility] Blood Venous blood specimen / Unknown Venipuncture / Unknown 06/19/2025 10:13 AM EDT 06/19/2025 10:13 AM EDT us Ishmael AHN LAB BLOOD ORDERABLES Fin al Result [facility] [address] [place] [address], * Microalbumin creatinine urine ratio (02/09/2025 11:56 AM EDT) Creatinine, Urine 44.0 mg/dL LAB CHEMISTRY METHOD 02/09/2025 4:47 PM EDT [facility] Microalb, Ur <5.0 0.0 - 29.0 mg/L LAB CHEMISTRY METHOD 02/09/2025 4:47 PM EDT [facility] Microalb/Creat Ratio <11 <30 mg/g creat LAB CHEMISTRY METHOD 02/09/2025 4:47 PM EDT [facility] Urine Urine specimen obtained by clean catch procedure / Unknown Non-blood Collection / Unknown 02/09/2025 11:56 AM EDT 02/09/2025 11:56 AM EDT Rashaun Toney MD LAB URINE ORDERABLES Final Resul t [facility] [address] [place] [address], [place] [phone] * CT LUNG SCREENING LOW DOSE (05/22/2024 2:26 PM EDT) Anatomical Region Laterality Modality Computed Tomogra phy 05/19/2024 10:2 4 AM EDT Narrative 05/22/2024 2:26 PM EDT [facility] Diagnostic Imaging Department [address] [place] [address] Patient: ERIKA WILLIS/Age/Sex: 1950 - 73 - M Unit#: [id number] Location/Status: SPDICATLS/REG CLI Mnemonic/Ordering Site: CTLUNGLD/SPCT Ordering Physician: MARY HUMPHREY MD CT Lung Screening Low Dose - 05/19/24 - 1041 Report Status:Signed History: 73 year-old 65 pack-year former smoker, asymptomatic, for lung cancer screening. Quit smoking 12 years ago. Known coronary artery disease. Multiple exposures. 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 Comparison: 05/19/23 Technique: Helical volumetric imaging of the thorax was performed, using low- dose technique, without IV contrast. DLP: 168.88 mGy/cm CTDIvol: 4.83 mGy Giftology VCT Iterative reconstruction technique Findings: Lungs and [...] Probably benign findings - short-term followup suggested. [id number] Dictating Physician: VANESSA DAILY MD Electronically Signed by: VANESSA DAILY MD Dic Date/Time: 05/22/24 1414 Sign date/Time: 05/22/24 1426 Procedure Note Vanessa Daily MD - 09/06/2024 [facility] Diagnostic Imaging Department [address] [place] [address] Patient: ZBIGNIEWERIKA /Age/Sex: 1950 - 73 - M Unit#: [id number] Location/Status: [facility] CLI Mnemonic/Ordering Site: [facility] Ordering Physician: MARY HUMPHREY MD CT Lung Screening Low Dose - 05/19/24 - 1041 Report Status:Signed History: 73 year-old 65 pack-year former smoker, asymptomatic, for lungcancer screening. Quit smoking 12 years ago. Known coronary artery disease.Multiple exposures. 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 Comparison: 05/19/23 Technique: Helical volumetric imaging of the thorax was performed, usinglow- dose technique, without IV contrast. DLP: 168.88 mGy/cm CTDIvol: 4.83 mGy Giftology VCT Iterative reconstruction technique Findings: Lungs and [...] new 4 mm right lower lobe nodule ([id number]). A few stable sub-4 mm nodules are [...] Probably benign findings - short-term followup suggested. [id number] [id number] Dictating Physician: VANESSA DAILY MD Electronically Signed by: VANESSA DAILY MD Dic Date/Time: 05/22/24 1414 Sign date/Time: 05/22/24 1426 Result [facility] Mary Humphrey MD IMG CT PROCEDURES Final Result * Falls Risk Assessment (11/08/2023) [facility] Falls Risk Assessment abstracted Result [facility] HEALTH MAINTENANCE Final Result * Depression Screening (11/08/2023) [facility] Depression Screening abstracted Result [facility] HEALTH MAINTENANCE Final Result * Diabetes Foot Exam (2023) [facility] Diabetes: Annual Foot Exam abstarcted Result [facility] Vishal LORENZO HEALTH MAINTENANCE Final Result * Colonoscopy (01/07/2023) [facility] Colonoscopy abstracted Anatomical Region Laterality Modality Other Result [facility] HEALTH MAINTENANCE Final Result * Hepatitis C Screening (02/11/2018) [facility] Hepatitis C Screening abstracted Result [facility] Vishal LORENZO HEALTH MAINTENANCE Final Result from Last 3 Months or Most Recently Relevant to Health Maintenance Insurance MEDICARE [facility] Care Teams Automotive Tire Tester Relationship Specialty Start Date End Date Rashaun Toney MD [address] [place] [address] PCP - General 09/13/1998
== END 2025-09-19 18:22 | disposition home or self-care (01) ==
LOC: HO.MRI 18:21
PROVIDERS: PCP Internal Medicine; Visit Provider Psychiatry & Neurology Neurology
DX: M48.061 Spinal stenosis, lumbar region without neurogenic claudication (principal)
CPT/HCPCS: 72148

== ENCOUNTER 2025-10-03 09:22 | Outpatient (AMB) | payer MEDICARE, BC, SELFPAY ==
--- NOTE | 2025-10-03 09:25 | A.OFFVIS_ITS ---
Intake Visit Reasons: 4 weeks follow up Allergies No Known Allergies Allergy (Verified 07/12/25 06:53) HPI Comments Details: 75 yo man with chronic pain and cramping in feet and legs. He was initially seen in 2015 when he reported similar symptoms. He was also drinking alcohol at that time. He was still drinking, couple of beers, 3-4 times a week. No burning sensation. There was numbness in feet but not pain. 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 HE had another study done at [facility] in Nov, which I reviewed. It revealed worsening of the same neuropathy with significant axonal loss and mild to mod slowing. MRI of lumbosacral spine at [facility] in 2024 revealed [id number] bilateral L5-S1 and moderately severe L4-5 and L3-4 bilateral foraminal stenosis. His exam has revealed bilateral calf area fasciculations, which were not seen in other areas of his body. He is presenting with management of cramping and muscle twitches due to spinal stenosis. He has a history of managing his symptoms primarily with carbamazepine, which provides partial relief from cramps that are more significant during nighttime. MRI findings indicated bilateral nerve compression characterizing his spinal stenosis, explaining his lower back and cramping issues. The patient previously adjusted his daily regimen, maintaining routine physical activity such as regular walks, which aids in managing his condition?s severity. His medical history includes abdominal aortic aneurysm and renal cysts, which have been acknowledged and are under observation, although unr elated to the presenting symptoms of cramps and spinal issues. [facility] Medical History Peripheral neuropathy Alcohol abuse Review of Systems Narrative - Musculoskeletal: Reports lower back pain (01/01). - Musculoskeletal: Reports neck pain extending to the shoulders. - Neurological: Reports cramping and muscle twitches. - Neurological: Denies widespread muscle twitching elsewhere. Physical Exam Neuro Other: Mental Status: Alert and oriented to person, place, and time. Normal attention. Normal spontaneous speech, fluency, and comprehension. No obvious issues with mood and memory. Affect is appropriate. Cranial Nerves: CN II: Visual alarcon full to confrontation, visual acuity intact. CN III, IV, : Pupils equal, round, reactive to light and accommodation. Extraocular movements are normal. CN V: Facial sensation is normal. CN VII: Facial movements symmetrical. CN VIII: Hearing intact to bedside conversation is normal. CN IX, X: Palate elevates symmetrically. CN XI: Shoulder shrug and head turn symmetrical. CN XII: Tongue midline without atrophy or fasciculations. Again noted were fasciculations and calf areas. He was able to get up and walk around with no significant difficulty. Extrapyramidal: Full facial expressions and blinking. No rigidity. Movements are appropriate with no tremor or abnormality. Speech: Normal; no dysarthria or tremor. Assessment & Plan Assessment & Plan (1) Peripheral neuropathy: Comment: EMG/NCS LEs at [facility] in 2015: Mild axonal SM PN EMG/NCS LEs at [facility] in Nov 2024: Mod axonal SM PN (reported as demyelinating but I don't think so). Code(s): G62.9 - Polyneuropathy, unspecified Category: Medical Qualifiers: Peripheral neuropathy type: polyneuropathy, unspecified Qualified Code(s): G62.9 - Polyneuropathy, unspecified (2) Spinal stenosis: Comment: MRI LS spine at [facility] in 2024: Mod to severe L5/S1 bilateral, mod L4/5, 3/4 bilateral stenosis. 3cm AAS, renal cysts Code(s): M48.00 - Spinal stenosis, site unspecified Category: Medical Qualifiers: Spinal region: lumbar Neurogenic claudication status: without neurogenic claudication Qualified Code(s): M48.061 - Spinal stenosis, lumbar region without neurogenic claudication (3) Muscle cramp: Comment: Meds tried for cramps: Gabapentin, pregabalin Code(s): R25.2 - Cramp and spasm Category: Medical Plan Impression: 1. Moderate to severe bilateral lower lumbosacral spinal stensosis 2. Muscle cramps due to underlying neuromuscular disorder 3. Calf area fasciculations, likely related to spinal stenosis as there was no evidence in other areas 4. Chronic LBP related to spinal stenosis 5. AAA, 3cm 6. Renal cysts Rec: a: No surgical intervention for spinal stenosis needed at this time. It may be needed in future b: Symptomatic treatment for pain and cramps. For now, he is taking Carbamazepine 200mg one at night c: He is advised to discuss AAA and renal cyst issues with his PCP for further guidance and any consultations if needed Rec: a. Try carbamazepine 200mg q HS Coding Level of Care Code Est Pt Level 4 (40026) Global (95811) Diagnoses Peripheral polyneuropathy G62.9 Peripheral neuropathy type: polyneuropathy, unspecified Spinal stenosis of lumbar region without neurogenic claudication M48.061 Spinal region: lumbar Neurogenic claudication status: without neurogenic claudication Muscle cramp R25.2
--- OUTSIDE RECORDS SUMMARY | 2025-10-03 10:16 | XMS_ITS | Clinical Summary ---
Author Organization [facility] Address [address] [place] [address] Phone Care Team Providers Care Surgical Clinical Reviewer Name Role Phone Rashaun Toney MD Primary Care Provider [phone] Allergies No known active allergies Medications tamsulosin [...] 20-100 mcg/actuation inhalerIndicati ons:Personal history of nicotine dependence,Presiding Judge nitish obstructive pulmonary disease, unspecified (CMS/HCC V24, CMS/HCC V28) INHALE 1 PUFF INTO THE LUNGS FOUR TIMES DAILY NEEDED FOR WHEEZING 1 each 11 03/26/20 25 Active atorvastatin (LIPITOR) 20 mg tablet TAKE 1 TABLET BY MOUTH EVERY DAY 90 tablet 1 05/23/20 25 Active lisinopril (PRINIVIL,ZESTR IL) 40 mg tablet Take 1 tablet (40 mg total) by mouth 1 (one) time each day. 30 each 5 08/04/20 25 01/31/2 026 Active carBAMazepine (TEGretol) 200 mg tablet Take 1 tablet (200 mg total) by mouth at bedtime. at bedtime. Prescribed by Dr. Stuart 08/30/20 Active amLODIPine (NORVASC) 2.5 mg tablet Take 1 tablet (2.5 mg total) by mouth 1 (one) time each day. 30 each 09/05/20 Active pregabalin (LYRICA) 150 mg capsule Take 1 capsule (150 mg total) by mouth 1 (one) time each day. at bedtime Prescribed by Neurologist Dr. Stuart 07/25/20 025 Discontinued Active Problems Problem Noted Date Diagnosed Date Hepatic steatosis 06/25/2025 DM (diabetes mellitus), type 2 ([facility] V24, [facility] /[facility] V28) 08/24/2024 Type 2 diabetes mellitus wit hout complication, without long-term current use of insulin ([facility] V24, [facility] V28) 05/11/2019 Hypoxia 11/30/2018 Requires supplemental oxygen 11/30/2018 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 (CMS/[facility] V24, CMS/HCC V28) 05/26/2018 Centrilobular emphysema ([facility] V24, CMS/[facility] V2 8) 05/26/2018 Thoracic ascending aortic aneurysm ([facility] V24) 10/21/2017 Pulmonary nodules 10/20/2017 Neuropathy [...] Description 09/05/2025 10:30 AM EDT Office Visit [address] [phone] Li Aquino, WEIGHT CHECKER Primary hypertension (Primary Dx); Neuropathy of both feet; Prediabetes; Need for prophylactic vaccination and inoculation against influenza 08/01/2025 8:45 AM EDT Office Visit [address] [phone] Li Aquino, WEIGHT CHECKER Sore throat (Primary Dx); Primary hypertension; Stage 2 moderate COPD by GOLD classification (CMS/HCC V24, CMS/HCC V28); Aneurysm of ascending aorta without rupture (CMS/HCC V24) 07/12/2025 1:22 PM EDT - 07/12/2025 11:59 PM EDT Hospital Encounter [facility] CT Scan [address] [place] [address] Pulmonary nodule less than 6 mm determined by computed tomography of lung Discharge Disposition: Home or Self Care from Last 3 Months Immunizations Immunization Administration [...] (chronic o bstructive pulmonary disease) ([facility]) Tubular adenoma of colon DX:Tubu lar [...] Record ed Within the last 3 months, prasad w many times did you visit the [...] do you feel lonely or isolated from ose around you? Never 09/05/2025 Food Risk [...] care for your loved ones. For example, childcare center director or elderly care for an older adult? [...] 1:00 PM EST Office Visit Pulmonology - [place] [address] [place] [phone] Ayaan Benjamin MD [address] [place] [phone] 10/09/2025 11:00 AM EST Office Visit Adult Medicine [address] [phone] Li Aquino NP [address], [place] 01/21/2026 11:15 AM EST Office Visit Adult [address] [phone] Rashaun Toney MD [address], [place] [phone] Health Maintenance Due Date Last Done Comments [...] Completed 02/11/2018 Depression Screening Completed 06/25/2025, 11/08/20 23 Abdominal Aortic Aneurysm (AAA) Screen Completed 06/29/2025 [...] of ascending aorta without rupture (CMS/HCC V24) LIPID PANEL WITH REFLEX TO DIRECT LDL [...] (ABNORMAL) Hemoglobin A1c (07/30/2025 9:25 AM EDT) Hemoglobin A1C 6.7(H) <6.5 % LAB CHEMISTRY METHOD 07/30/2025 12:26 PM EDT [facility] Mean Bld Glu Estim. 146 mg/dL LAB CHEMISTRY METHOD 07/30/2025 12:26 PM EDT [facility] Blood Venous blood specimen / Unknown Venipuncture / Unknown 07/30/2025 9:25 AM EDT 07/30/2025 9:25 AM EDT us Li Aquino WEIGHT CHECKER LAB BLOOD ORDERABLES Final R esult [facility] [address] [place] [address], [place] [phone] * (ABNORMAL) Comprehensive metabolic panel (07/30/2025 9:22 AM EDT) Sodium 137 133 - 145 mmol/L LAB CHEMISTRY METHOD 07/30/2025 2:07 PM [facility] Potassium 4.4 3.5 - 5.5 mmol/L LAB CHEMISTRY METHOD 07/30/2025 2:07 PM [facility] Chloride 105 96 - 110 mmol/L LAB CHEMISTRY METHOD 07/30/2025 2:07 PM [facility] CO2 27 21 - 32 mmol/L LAB CHEMISTRY METHOD 07/30/2025 2:07 PM [facility] Anion Gap 5 3 - 11 LAB CHEMISTRY METHOD 07/30/2025 2:07 PM [facility] Glucose 130(H) 70 - 100 mg/dL LAB CHEMISTRY METHOD 07/30/2025 2:07 PM [facility] BUN 15 5 - 25 mg/dL LAB CHEMISTRY METHOD 07/30/2025 2:07 PM [facility] Creatinine 0.81 0.70 - 1.30 mg/dL LAB CHEMISTRY METHOD 07/30/2025 2:07 PM [facility] eGFR 93 >=60 mL/min/1. 73m2 LAB CHEMISTRY METHOD 07/30/2025 2:07 PM [facility] Comment:Calculation based on the Chronic Kidney Disease Epidemiology Collaboration (CKD-EPI) equation refit without adjustment for race. BUN/Creatinine Ratio 18.5 LAB CHEMISTRY METHOD 07/30/2025 2:07 PM [facility] Calcium 9.5 8.5 - 10.5 mg/dL LAB CHEMISTRY METHOD 07/30/2025 2:07 PM [facility] AST (SGOT) 30 10 - 42 unit/L LAB CHEMISTRY METHOD 07/30/2025 2:07 PM [facility] ALT (SGPT) 28 10 - 60 unit/L LAB CHEMISTRY METHOD 07/30/2025 2:07 PM EDT [facility] Alkaline Phosphatase 99 42 - 121 unit/L LAB CHEMISTRY METHOD 07/30/2025 2:07 PM EDT [facility] Total Protein 7.3 6.0 - 8.0 g/dL LAB CHEMISTRY METHOD 07/30/2025 2:07 PM EDT [facility] Albumin 4.2 3.2 - 5.0 g/dL LAB CHEMISTRY METHOD 07/30/2025 2:07 PM EDT [facility] Total Bilirubin 0.5 0.0 - 1.4 mg/dL LAB CHEMISTRY METHOD 07/30/2025 2:07 PM EDT [facility] Blood Venous blood specimen / Unknown Venipuncture / Unknown 07/30/2025 9:22 AM EDT 07/30/2025 9:22 AM EDT us Li Aquino WEIGHT CHECKER LAB BLOOD ORDERABLES Final R esult [facility] [address] [place] [address], [place] [phone] * CT Chest wo Contrast (Lung-RADS F/U) [...] Signed Date: 07/17/2025 16:51 ET Workstation ID: [id number] Transcribed By: Self Edit Transcribed Date: 07/17/2025 [...] 07/12/25-0.4 cm (3/164) 11/16/24 0.4 cm (3/167) Corporate [employer] Associate peripheral nodule in the lateral aspect of the left upper lobe 07/12/25-0.2 cm (/87) 11/16/24-0.5 cm (3/85) There are a few [...] 07/12/25-0.4 cm (3/164) 11/16/24 0.4 cm (3/167) Corporate Communications Associate peripheral nodule in the lateral aspect of [...] Signed Date: 07/17/2025 16:51 ET Workstation ID: [id number] Transcribed By: Self Edit Transcribed Date: 07/17/2025 [...] Signed Date: 06/29/2025 10:17 ET Workstation ID: [id number] Transcribed By: Self Edit Transcribed Date: 06/29/2025 [...] Signed Date: 06/29/2025 10:17 ET Workstation ID: [id number] Transcribed By: Self Edit Transcribed Date: 06/29/2025 10:06 ET us Li Aquino WEIGHT CHECKER IMG US PROCEDURES Final Resu lt * Lipid panel with reflex to direct LDL (06/19/2025 10:13 AM EDT) Cholesterol 159 0 - 200 mg/dL LAB CHEMISTRY METHOD 06/19/2025 1:15 PM EDT [facility] Triglycerides 140 0 - 150 mg/dL LAB CHEMISTRY METHOD 06/19/2025 1:15 PM EDT [facility] HDL 62 >=40 mg/dL LAB CHEMISTRY METHOD 06/19/2025 1:15 PM EDT [facility] LDL Calculated 69 0 - 100 mg/dL LAB CHEMISTRY METHOD 06/19/2025 1:15 PM EDT [facility] VLDL Cholesterol Andrade 28 mg/dL LAB CHEMISTRY METHOD 06/19/2025 1:15 PM EDT [facility] Non HDL Chol. (LDL+VLDL) 97 <145 mg/dL LAB CHEMISTRY METHOD 06/19/2025 1:15 PM EDT [facility] Chol/HDL Ratio 2.6 0.0 - 4.4 LAB CHEMISTRY METHOD 06/19/2025 1:15 PM EDT [facility] Blood Venous blood specimen / Unknown Venipuncture / Unknown 06/19/2025 10:13 AM EDT 06/19/2025 10:13 AM EDT us Ishmael AHN LAB BLOOD ORDERABLES Fin al Result [facility] [address] [place] [address], [place] [phone] * Microalbumin creatinine urine ratio (02/09/2025 11:56 AM EDT) Creatinine, Urine 44.0 mg/dL LAB CHEMISTRY METHOD 02/09/2025 4:47 PM EDT [facility] Microalb, Ur <5.0 0.0 - 29.0 mg/L LAB CHEMISTRY METHOD 02/09/2025 4:47 PM EDT [facility] Microalb/Creat Ratio <11 <30 mg/g creat LAB CHEMISTRY METHOD 02/09/2025 4:47 PM EDT [facility] Urine Urine specimen obtained by clean catch procedure / Unknown Non-blood Collection / Unknown 02/09/2025 11:56 AM EDT 02/09/2025 11:56 AM EDT us Rashaun Toney MD LAB URINE ORDERABLES Final Resul t [facility] [address] [place] [address], * CT LUNG SCREENING LOW DOSE (05/22/2024 2:26 PM EDT) Anatomical Region Laterality Modality Computed Tomogra phy 05/19/2024 10:2 4 AM EDT Narrative 05/22/2024 2:26 PM EDT [facility] Diagnostic Imaging Department [address] [place] [address] Patient: ERIKA WILLIS D.O.B./Age/Sex: 1950 - 73 - M Unit#: [id number] Location/Status: SPDICATLS/REG CLI Mnemonic/Ordering Site: [facility] Ordering Physician: MARY HUMPHREY MD CT Lung Screening Low Dose - 05/19/24 - 1041 Report Status:Signed History: 73 year-old 65 pack-year former smoker, asymptomatic, for lung cancer screening. Quit smoking 12 years ago. Known coronary artery disease. Multiple exposures. 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 Comparison: 05/19/23 Technique: Helical volumetric imaging of the thorax was performed, using low- dose technique, without IV contrast. DLP: 168.88 mGy/cm CTDIvol: 4.83 mGy [employer]T Iterative reconstruction technique Findings: Lungs and Airways: [...] Probably benign findings - short-term followup suggested. [id number] [id number] G9557 [id number] Dictating Physician: VANESSA DAILY MD Electronically Signed by: VANESSA DAILY MD Dic Date/Time: 05/22/24 1414 Sign date/Time: 05/22/24 1426 Procedure Note Vanessa Daily MD - 09/06/2024 [facility] Diagnostic Imaging Department [address] [place] [id number] Patient: ERIKA WILLIS /Age/Sex: 1950 - 73 - M Unit#: [id number] Location/Status: SPDICATLS/REG CLI Mnemonic/Ordering Site: [facility] Ordering Physician: MARY HUMPHREY MD CT Lung Screening Low Dose - 05/19/24 - 1041 Report Status:Signed History: 73 year-old 65 pack-year former smoker, asymptomatic, for lungcancer screening. Quit smoking 12 years ago. Known coronary artery disease.Multiple exposures. 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 Comparison: 05/19/23 Technique: Helical volumetric imaging of the thorax was performed, usinglow- dose technique, without IV contrast. DLP: 168.88 mGy/cm CTDIvol: 4.83 mGy [employer] VCT Iterative reconstruction technique Findings: Lungs and [...] new 4 mm right lower lobe nodule ([id number]). A few stable sub-4 mm nodules are [...] Probably benign findings - short-term followup suggested. [id number] [id number] G9557 [id number] Dictating Physician: VANESSA DAILY MD Electronically Signed by: VANESSA DAILY MD Dic Date/Time: 05/22/24 1414 Sign date/Time: 05/22/24 1426 Result [facility] Mary Humphrey MD IMG CT PROCEDURES Final Result * Falls Risk Assessment (11/08/2023) [facility] Falls Risk Assessment abstracted Result [facility] [employer] [employer] Final Result * Depression Screening (11/08/2023) [facility] Depression Screening abstracted Result [facility] [employer] Final Result * Diabetes Foot Exam (2023) [facility] Diabetes: Annual Foot Exam abstarcted Result [facility] [employer] Final Result * Colonoscopy (01/07/2023) [facility] Colonoscopy abstracted Anatomical Region Laterality Modality Other Result [facility] [employer] Final Result * Hepatitis C Screening (02/11/2018) [facility] Hepatitis C Screening abstracted Result [facility] [employer] Final Result from Last 3 Months or Most Recently Relevant to Health Maintenance Insurance MEDICARE [facility] Care Teams Surgical Clinical Reviewer Relationship Specialty Start Date End Date Rashaun Toney MD [address] [place] [address] PCP - General 09/13/1998
== END 2025-10-03 09:43 | disposition home or self-care (01) ==
LOC: HO.HSM 09:23
PROVIDERS: PCP Internal Medicine; Visit Provider Psychiatry & Neurology Neurology
DX: G62.9 Polyneuropathy, unspecified (principal); M48.061 Spinal stenosis, lumbar region without neurogenic claudication; R25.2 Cramp and spasm
CPT/HCPCS: 99214; G2211

== ENCOUNTER → 2025-10-03 09:22 | Outpatient (BNVA) | payer MEDICARE, BC, SELFPAY | PROVIDERS: PCP Internal Medicine; Visit Provider Psychiatry & Neurology Neurology | DX: G62.89 Other specified polyneuropathies (principal); M48.061 Spinal stenosis, lumbar region without neurogenic claudication; R25.2 Cramp and spasm; F10.10 Alcohol abuse, uncomplicated | CPT/HCPCS: 99212 ==